=== PATIENT | male | born 1940 | race Caucasian/White ===

== ENCOUNTER 2017-02-10 08:37 | Emergency (ER) | payer MEDICARE, OTHER ==
[2017-02-10] MEDS ORDERED: HYDROcod/ACETAM 5/325 MG TABLET PO STA (09:31)
[2017-02-10] MEDS ORDERED: TRIAMCINOLONE 40 MG/ML VIAL IM STA (09:31)
[2017-02-10] MEDS ORDERED: TRIAMCINOLONE 40 MG/ML VIAL ONE (09:33)
[2017-02-10] MEDS ORDERED: HYDROcod/ACETAM 5/325 MG TABLET ONE (09:33)
--- NOTE | 2017-02-10 10:16 | ED Physician Documentation ---
PD HPI NECK PAIN - Stated complaint Stated Complaint: HEAD PX - Chief complaint Chief Complaint: Neuro - History obtained from History obtained from: Patient - History of Present Illness Timing - onset: How many days ago (few) Timing - duration: Days (few) Timing - details: Gradual onset, Still present, Waxing and waning Location: Upper, Right Quality: Pain, Aching Associated symptoms: No: Fever, Weakness, Numbness Improves with: Rest Worsened by: Movement, Palpation Contributing factors: No: Lifting, Twisting, Trauma Similar symptoms before: Has not had sx before Recently seen: Not recently seen Review of Systems Constitutional: denies: Fever, Chills Eyes: denies: Loss of vision, Decreased vision, Photophobia Nose: denies: Rhinorrhea / runny nose, Congestion Throat: denies: Sore throat Respiratory: denies: Cough Skin: denies: Rash, Lesions Musculoskeletal: reports: Neck pain. denies: Back pain Neurologic: denies: Focal weakness, Numbness, Near syncope, Confused, Altered mental status, Headache PD PAST MEDICAL HISTORY - Past Medical History Past Medical History: Yes Cardiovascular: Hypertension : Benign prostate hypertrophy - Past Surgical History Past Surgical History: No - Present Medications Home Medications: Ambulatory Orders Medication Instructions Recorded Confirmed Hydrocodone/Acetaminophen [[place] 1 each PO Q6H PRN #20 tablet 02/10/17 5-325 Tablet] Lisinopril 10 mg ORAL DAILY 02/10/17 02/10/17 Methocarbamol [Robaxin] 500 mg PO Q6H PRN #25 tablet 02/10/17 Naproxen [Naprosyn] 500 mg PO BID #15 tablet 02/10/17 - Allergies Allergies/Adverse Reactions: Allergies Allergy/AdvReac Type Severity Reaction Status Date / Time No Known Drug Allergies Allergy Verified 02/10/17 08:44 - Social History Does the pt smoke?: No Smoking Status: Never smoker Does the pt drink ETOH?: No Does the pt have substance abuse?: No - Immunizations Immunizations are current?: Yes PD ED PE NORMAL - Vitals Vital signs reviewed: Yes - General General: Alert and oriented X 3, No acute distress, Well developed/nourished, Other (some guarded movement of neck due to pain right upper neck. ) - HEENT HEENT: PERRL, EOMI - Neck Neck: Supple, no meningeal sign, No adenopathy, Other (tender right upper trapezius insetion area. No rash nor sores. 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 some arthritic. ) PD MEDICAL DECISION MAKING - ED course Complexity details: re-evaluated patient (trigger point injection at tender muscle upper right trapezius insertion without problems using Kenalog and Marcaine. ), considered differential (neck pain with tender spot at trapezius insertion and no neuro symptoms. Xray with some arthritic changes, no significant. ), d/w patient Departure - Departure Disposition: 01 Home, Self Care Clinical Impression: Musculoskeletal neck pain Condition: Stable Record reviewed to determine appropriate education?: Yes Instructions: ED Neck Pain No Trauma Follow-Up: Christi Saunders DO [Primary Care Provider] - Prescriptions: Naproxen [Naprosyn] 500 mg PO BID #15 tablet Hydrocodone/Acetaminophen [[place] 5-325 Tablet] 1 each PO Q6H PRN #20 tablet PRN Reason: Pain Methocarbamol [Robaxin] 500 mg PO Q6H PRN #25 tablet PRN Reason: Spasms Comments: Heat and gentle stretching for neck area to help with muscles. Naproxen twice daily for 5-10 days until better. Robaxin muscle relaxant for stiffness as needed. Add hydrocodone for pain as needed. Recheck if not better over the next week. Discharge Date/Time: 02/10/17 10:55
[2017-02-10 10:43] VITALS: BP 133/78
--- NOTE | 2017-02-10 11:27 | XRAY Preliminary Report ---
Exam: XR Cervical Spine 2 View IMPRESSION: 1. Negative for fracture or spondylolisthesis. 2. Multilevel moderate to severe degenerative disk disease in the C3 through the T1, worse in the C5- C6. [facility] SITE ID: [id number]
--- NOTE | 2017-02-10 11:30 | XRAY Report ---
EXAM: CERVICAL SPINE RADIOGRAPHY EXAM DATE: 02/10/2017 09:46 AM. CLINICAL HISTORY: Right neck pain for a week. COMPARISONS: None. TECHNIQUE: 3 views. FINDINGS: Alignment: No discrete spondylolisthesis or scoliosis. Bones: The cervical vertebral bodies and posterior elements are well visualized from the skull base t hrough C7-T1. No fractures or bone lesions. Disks: There is near complete spontaneous fusion of the disk in the C2-C3 . Multilevel moderate to se elle degenerative disk disease in the C3 through the T1, worse in the C5-C6. Facets: No degenerative disease. Soft Tissues: No prevertebral soft tissue swelling. The visualized lung apices are clear. IMPRESSION: 1. Negative for fracture or spondylolisthesis. 2. Multilevel moderate to severe degenerative disk disease in the C3 through the T1, worse in the C5- C6. [facility] Referring Provider Line: [phone] SITE ID: [id number]
== END 2017-02-10 10:55 | disposition home or self-care (01) ==
LOC: ED 08:37
DX: M54.2 Cervicalgia (principal); M50.33 Other cervical disc degeneration, cervicothoracic region; I10 Essential (primary) hypertension; N40.0 Benign prostatic hyperplasia without lower urinary tract symptoms
CPT/HCPCS: 20552; 72040; 99283; 99284

== ENCOUNTER 2018-09-28 18:05 | Emergency (ER) | payer MEDICARE, OTHER ==
[2018-09-28 18:12] VITALS: BP 149/85
--- NOTE | 2018-09-28 18:20 | ED Physician Documentation ---
History of Present Illness - Stated complaint Stated Complaint: COLD SWEAT/SHAKING - Chief complaint Chief Complaint: General - History obtained from History obtained from: Patient - History of Present Illness Timing: Today (He traveled down to [place] to see family and came back today. He is a little tired after traveling and laid down for a nap. He got up a little less than an hour ago because he was shaking and cold and sweaty. It still going on to some extent but less so. There is no associated chest pain, cough, urinary complaints, shortness of breath, pedal edema, sore throat.) Review of Systems Constitutional: reports: Chills, Fatigue, Sweats. denies: Fever Ears: denies: Ear pain Nose: denies: Rhinorrhea / runny nose, Congestion Throat: denies: Sore throat Cardiac: denies: Chest pain / pressure, Palpitations Respiratory: denies: Dyspnea, Cough GI: denies: Abdominal Pain, Nausea, Constipation, Diarrhea PD PAST MEDICAL HISTORY - Past Medical History Cardiovascular: Hypertension : Benign prostate hypertrophy - Past Surgical History Past Surgical History: No - Present Medications Home Medications: Ambulatory Orders Medication Instructions Recorded Confirmed Lisinopril 20 mg ORAL DAILY 02/10/17 02/10/17 Amitriptyline [Elavil] 10 mg PO QPM 09/28/18 09/28/18 Tamsulosin HCl [Flomax] 0.4 mg PO QPM 09/28/18 09/28/18 - Allergies Allergies/Adverse Reactions: Allergies Allergy/AdvReac Type Severity Reaction Status Date / Time No Known Drug Allergies Allergy Verified 09/28/18 18:11 - Social History Does the pt smoke?: No Smoking Status: Never smoker Does the pt drink ETOH?: No Does the pt have substance abuse?: No - Immunizations Immunizations are current?: Yes PD ED PE NORMAL - Vitals Vital signs reviewed: Yes - General General: Alert and oriented X 3, No acute distress - HEENT HEENT: PERRL, EOMI - Neck Neck: Supple, no meningeal sign, No bony TTP - Cardiac Cardiac: RRR, No murmur - Respiratory Respiratory: No respiratory distress, Clear bilaterally - Abdomen Abdomen: Soft, Non tender - Derm Derm: Normal color, Warm and dry - Extremities Extremities: No edema, No calf tenderness / cord - Neuro Neuro: Alert and oriented X 3, Normal speech Results - Vitals Vitals: Vital Signs - 24 hr 09/28/18 18:08 Temperature 36.2 C L Heart Rate 86 Respiratory 18 Rate Blood Pressure 149/85 H O2 Saturation 96 Oxygen O2 Source Room air - EKG (time done) 1839 Rate: Rate (enter#) (76) Rhythm: NSR [place]: Normal Intervals: Normal NM QRS: Normal Ischemia: Non specific changes Computer interpretation: Agree with computer - Labs Labs: Laboratory Tests 09/28/18 09/28/18 09/28/18 18:25 18:45 18:45 WBC 6.5 RBC 4.43 L Hgb 13.7 L Hct 40.8 L MCV 92.0 MCH 31.0 MCHC 33.7 RDW 13.4 Plt Count 170 MPV 8.6 Neut # (Auto) 4.1 Lymph # (Auto) 1.3 L [place] # (Auto) 0.8 Eos # (Auto) 0.2 Baso # (Auto) 0.1 Absolute Nucleated RBC 0.00 Nucleated RBC % 0.0 Sodium 137 Potassium 4.2 Chloride 103 Carbon Dioxide 28 Anion Gap 6.0 BUN 26 H Creatinine 0.9 Estimated GFR (MDRD) 82 L Glucose 114 H Calcium 8.8 Total Bilirubin 0.6 AST 21 ALT 17 Alkaline Phosphatase 81 Troponin I Total Protein 6.8 Albumin 3.6 Globulin 3.2 Albumin/Globulin Ratio 1.1 Lipase 38 Urine Color YELLOW Urine Clarity CLEAR Urine pH 5.5 Ur Specific [place] 1.025 Urine Protein NEGATIVE Urine Glucose (UA) NEGATIVE Urine Ketones NEGATIVE Urine Occult Blood NEGATIVE Urine Nitrite NEGATIVE Urine Bilirubin NEGATIVE Urine Urobilinogen 1 (NORMAL) Ur Leukocyte Esterase NEGATIVE Ur Microscopic Review NOT INDICATED Urine Culture Comments NOT INDICATED 09/28/18 18:45 WBC RBC Hgb Hct MCV MCH MCHC RDW Plt Count MPV Neut # (Auto) Lymph # (Auto) [place] # (Auto) Eos # (Auto) Baso # (Auto) Absolute Nucleated RBC Nucleated RBC % Sodium Potassium Chloride Carbon Dioxide Anion Gap BUN Creatinine Estimated GFR (MDRD) Glucose Calcium Total Bilirubin AST ALT Alkaline Phosphatase Troponin I < 0.04 Total Protein Albumin Globulin Albumin/Globulin Ratio Lipase Urine Color Urine Clarity Urine pH Ur Specific [place] Urine Protein Urine Glucose (UA) Urine Ketones Urine Occult Blood Urine Nitrite Urine Bilirubin Urine Urobilinogen Ur Leukocyte Esterase Ur Microscopic Review Urine Culture Comments PD MEDICAL DECISION MAKING - ED course ED course: 78-year-old gentleman presents with odd and nonspecific symptoms of shakes and cold sweats. Resolved during his time here and given advanced age he was evaluated extensively without pertinent abnormal findings. Departure - Departure Disposition: 01 Home, Self Care Clinical Impression: Shakes, Chills without fever Hypertension Qualifiers: Hypertension type: essential hypertension Qualified Code(s): I10 - Essential (primary) hypertension Condition: Good Record reviewed to determine appropriate education?: Yes Comments: If you develop new or recurrent symptoms please return for reevaluation. Follow-up with your physician later this week for recheck.
[2018-09-28 18:35] LABS: BILIRUBIN,URINE NEGATIVE (NEGATIVE); GLUCOSE, URINE (UA) NEGATIVE (NEGATIVE); KETONES,URINE (UA) NEGATIVE (NEGATIVE); LEUKOCYTE ESTERASE, URINE NEGATIVE (NEGATIVE); NITRITE,URINE NEGATIVE (NEGATIVE); OCCULT BLOOD,URINE NEGATIVE (NEGATIVE); PH,URINE 5.5 PH (5.0-7.5); PROTEIN,URINE NEGATIVE (NEGATIVE); UROBILINOGEN,URINE 1 (NORMAL) E.U./dL (NORMAL)
[2018-09-28 18:36] LABS: CLARITY,URINE CLEAR (CLEAR)
[2018-09-28 18:54] LABS: BASOPHILS # (AUTO) 0.1 10^3/uL (0.0-0.1); BASOPHILS % (AUTO) 0.9 %; EOSINOPHILS # (AUTO) 0.2 10^3/uL (0.0-0.7); EOSINOPHILS % (AUTO) 2.4 %; HGB - HEMOGLOBIN 13.7 g/dL (14.0-18.0); LYMPHOCYTES # (AUTO) 1.3 10^3/uL (1.5-3.5); LYMPHOCYTES % (AUTO) 20.2 %; MEAN CORPUSCULAR HGB CONC 33.7 g/dL (32.0-36.0); MEAN PLATELET VOLUME 8.6 fL (7.4-11.4); MONOCYTES # (AUTO) 0.8 10^3/uL (0.0-1.0); NEUTROPHILS # (AUTO) 4.1 10^3/uL (1.5-6.6); NEUTROPHILS % (AUTO) 63.5 %; PLT - PLATELET COUNT 170 10^3/uL (130-450); RED BLOOD COUNT 4.43 10^6/uL (4.70-6.10); RED CELL DISTRIBUTION WIDTH 13.4 % (12.0-15.0); WHITE BLOOD COUNT 6.5 x10^3/uL (4.8-10.8)
[2018-09-28 19:06] LABS: ALBUMIN 3.6 g/dL (3.2-5.5); ALBUMIN/GLOBULIN RATIO 1.1 (1.0-2.2); BILIRUBIN,TOTAL 0.6 mg/dL (0.2-1.0); CALCIUM 8.8 mg/dL (8.5-10.3); CREATININE 0.9 mg/dL (0.6-1.2); TOTAL PROTEIN 6.8 g/dL (6.7-8.2)
--- NOTE | 2018-09-28 19:36 | XRAY Report ---
Reason: rigors Procedure Date: 09/28/2018 Accession Number: [id number] / [id number] Procedure: XR - Chest 2 View X-Ray CPT Code: 39084 FULL RESULT: EXAM: CHEST RADIOGRAPHY. EXAM DATE: 09/28/2018 06:31 PM. CLINICAL HISTORY: Rigors. COMPARISON: 10/01/2008 8:19 AM. TECHNIQUE: 2 views. FINDINGS: Lungs/Pleura: No focal opacities evident. No pleural effusion. No pneumothorax. Normal volumes. Mediastinum: Heart and mediastinal contours are unremarkable. Other: None. IMPRESSION: No active disease. [facility]
== END 2018-09-28 19:58 | disposition home or self-care (01) ==
LOC: ED 18:05
DX: R68.83 Chills (without fever) (principal); R61 Generalized hyperhidrosis; R53.83 Other fatigue; I10 Essential (primary) hypertension
CPT/HCPCS: 36415; 71046; 80053; 81001; 81003; 83690; 84484; 85025; 87086; 93005; 99283

== ENCOUNTER 2019-11-30 01:29 | Observation (INO) | payer MEDICARE, OTHER ==
--- NOTE | 2019-11-30 01:36 | ED Physician Documentation ---
History of Present Illness - Stated complaint Stated Complaint: RECTAL BLEED - History obtained from History obtained from: Patient, Family (The patient is a 79-year-old male who presents with spontaneous lower GI bleeding. The patient's reports he woke tonight from sleep to have a bowel movement he had a large bloody bowel movement and then he continued to bleed out of his rectum he denies taking anticoagulants he denies any history of previous similar episodes.The patient denies alcohol use.He denies any pain currently.) Review of Systems Constitutional: reports: Reviewed and negative Eyes: reports: Reviewed and negative Ears: reports: Reviewed and negative Nose: reports: Reviewed and negative Throat: reports: Reviewed and negative Cardiac: reports: Reviewed and negative Respiratory: reports: Reviewed and negative GI: reports: Bloody / black stool : reports: Reviewed and negative Skin: reports: Reviewed and negative Musculoskeletal: reports: Reviewed and negative Neurologic: reports: Reviewed and negative Psychiatric: reports: Reviewed and negative Endocrine: reports: Reviewed and negative Immunocompromised: reports: Reviewed and negative PD PAST MEDICAL HISTORY - Past Medical History Cardiovascular: Hypertension Respiratory: None Neuro: Headaches Endocrine/Autoimmune: None GI: None : Benign prostate hypertrophy HEENT: None Psych: None Musculoskeletal: None Derm: None - Past Surgical History Past Surgical History: No - Present Medications Home Medications: Ambulatory Orders Medication Instructions Recorded Confirmed lisinopriL [Lisinopril] 20 mg ORAL DAILY 02/10/17 02/10/17 Tamsulosin HCl [Flomax] 0.4 mg PO QPM 09/28/18 09/28/18 - Allergies Allergies/Adverse Reactions: Allergies Allergy/AdvReac Type Severity Reaction Status Date / Time No Known Drug Allergies Allergy Verified 09/28/18 18:11 - Social History Does the pt smoke?: No Smoking Status: Never smoker Does the pt drink ETOH?: No Does the pt have substance abuse?: No - Immunizations Immunizations are current?: Yes - POLST Patient has POLST: No PD ED PE NORMAL - Vitals Vital signs reviewed: Yes - General General: Alert and oriented X 3, Other (Pale, diaphoretic, blood all over the patient's pants and on the bed.) - HEENT HEENT: Atraumatic, PERRL, Moist mucous membranes, Pharynx benign - Neck Neck: Supple, no meningeal sign, No JVD, No bruit - Cardiac Cardiac: RRR, Strong equal pulses - Respiratory Respiratory: No respiratory distress, Clear bilaterally - Abdomen Abdomen: Normal bowel sounds, Soft, Non tender, Non distended, No organomegaly - Male Male : Other (Circumcised genitalia no blood at the urethral meatus testicles descended bilaterally no inguinal hernias appreciated) - Rectal Rectal: Other (Gross blood in the rectum and the anus and on the bed sheets. No signs of trauma no lesions no signs of external or internal hemorrhoids. 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, No motor deficit, No sensory deficit, Normal speech - Psych Psych: Normal mood, Normal affect Results - Vitals Vitals: Vital Signs - 24 hr 11/30/19 11/30/19 11/30/19 01:34 01:39 01:45 Temperature 34.6 C L 36.0 C L Heart Rate 55 L Respiratory 18 Rate Blood Pressure 130/70 O2 Saturation 95 11/30/19 11/30/19 11/30/19 01:46 01:57 02:02 Temperature Heart Rate 53 L 55 L 56 L Respiratory 18 13 19 Rate Blood Pressure 107/70 107/70 115/69 O2 Saturation 95 97 11/30/19 11/30/19 11/30/19 02:16 02:42 02:45 Temperature Heart Rate 49 L 52 L 53 L Respiratory 16 15 18 Rate Blood Pressure 112/60 110/63 124/69 O2 Saturation 96 95 94 Oxygen O2 Source Room air - EKG (time done) 01:55 Rate: Rate (enter#) (52), Other (No STEMI) Rhythm: NSR [place]: Normal Intervals: Prolonged SD QRS: Normal Ischemia: Non specific changes Computer interpretation: Agree with computer - Labs Labs: Laboratory Tests 11/30/19 11/30/19 11/30/19 01:40 01:40 01:40 WBC 7.3 RBC 4.02 L Hgb 12.4 L Hct 37.4 L MCV 93.0 MCH 30.8 MCHC 33.2 RDW 12.6 Plt Count 197 MPV 10.9 Neut # (Auto) 2.9 Lymph # (Auto) 3.2 [place] # (Auto) 1.0 Eos # (Auto) 0.2 Baso # (Auto) 0.1 Absolute Nucleated RBC 0.00 Nucleated RBC % 0.0 PT 12.3 INR 1.1 APTT 23.5 L Sodium 139 Potassium 3.6 Chloride 104 Carbon Dioxide 23 Anion Gap 12.0 BUN 29 H Creatinine 1.0 Estimated GFR (MDRD) 72 L Glucose 144 H Lactic Acid Calcium 8.6 Total Bilirubin 0.5 Direct Bilirubin 0.1 AST 22 ALT 13 Alkaline Phosphatase 56 [place]mon[place] Total Creatine Kinase 174 Troponin I High Sens B-Natriuretic Peptide Total Protein 5.9 L Albumin 3.4 Globulin 2.5 Salicylates < 6.0 Acetaminophen < 10 L Ethyl Alcohol < 5.0 Blood Type Blood Type Recheck Antibody Screen Crossmatch IS Only 11/30/19 11/30/19 11/30/19 01:40 01:40 01:40 WBC RBC Hgb Hct MCV MCH MCHC RDW Plt Count MPV Neut # (Auto) Lymph # (Auto) [place] # (Auto) Eos # (Auto) Baso # (Auto) Absolute Nucleated RBC Nucleated RBC % PT INR APTT Sodium Potassium Chloride Carbon Dioxide Anion Gap BUN Creatinine Estimated GFR (MDRD) Glucose Lactic Acid 2.5 H Calcium Total Bilirubin Direct Bilirubin AST ALT Alkaline Phosphatase [place] 14.6 Total Creatine Kinase Troponin I High Sens B-Natriuretic Peptide 41 Total Protein Albumin Globulin Salicylates Acetaminophen Ethyl Alcohol Blood Type Blood Type Recheck Antibody Screen Crossmatch IS Only 11/30/19 11/30/19 11/30/19 01:40 01:40 02:20 WBC RBC Hgb Hct MCV MCH MCHC RDW Plt Count MPV Neut # (Auto) Lymph # (Auto) [place] # (Auto) Eos # (Auto) Baso # (Auto) Absolute Nucleated RBC Nucleated RBC % PT INR APTT Sodium Potassium Chloride Carbon Dioxide Anion Gap BUN Creatinine Estimated GFR (MDRD) Glucose Lactic Acid Calcium Total Bilirubin Direct Bilirubin AST ALT Alkaline Phosphatase Ammonia Total Creatine Kinase Troponin I High Sens 9.6 B-Natriuretic Peptide Total Protein Albumin Globulin Salicylates Acetaminophen Ethyl Alcohol Blood Type O NEGATIVE Blood Type Recheck O NEGATIVE Antibody Screen NEGATIVE Crossmatch IS Only See Detail PD MEDICAL DECISION MAKING - ED course Complexity details: other (unsure of the patient's cause of BRBPR, not on anticoagualants, no trauma, did have abd hernia repair last month but denies abd pain currently, denies AC or ETOH. denies hx of prev sim episodes, discussed case w surgeon who is agreeable to colonoscopy in the am, patient and updated. patient accepted by hospitalist, patient HD stable at this time. ) - Consults Consults: Consulted (name) (dr ferreira, general surgeon, will stay on as consult and scope in the am.), Discussed case with (dr karolyn roberts, hospitalist, will accept.), Request ent consultant evaluate patient, Request ent consultant admit patient - Critical Care Time(min): 30 Time Includes: Direct patient care, Review records, Reassess patient, Document care, Coordinate care, Medical consult, Family consult for tx dec Data interpretation: Labs, Pulse ox Procedures included in critical care time: Peripheral IV, Blood draw Departure - Departure Disposition: ED Place in Observation Clinical Impression: Lower GI bleed Condition: Fair Discharge Date/Time: 11/30/19 03:30
[2019-11-30] MEDS ORDERED: SODIUM CHLORIDE 0.9% 1,000 ML IV ONE ×2 (01:42)
[2019-11-30 01:50] LABS: BASOPHILS # (AUTO) 0.1 10^3/uL (0.0-0.1); EOSINOPHILS # (AUTO) 0.2 10^3/uL (0.0-0.7); EOSINOPHILS % (AUTO) 2.7 %; HGB - HEMOGLOBIN 12.4 g/dL (14.0-18.0); LYMPHOCYTES # (AUTO) 3.2 10^3/uL (1.5-3.5); LYMPHOCYTES % (AUTO) 43.1 %; MEAN CORPUSCULAR HEMOGLOBIN 30.8 pg (27.0-31.0); MEAN CORPUSCULAR HGB CONC 33.2 g/dL (32.0-36.0); MEAN PLATELET VOLUME 10.9 fL (7.4-11.4); MONOCYTES % (AUTO) 13.8 %; NEUTROPHILS # (AUTO) 2.9 10^3/uL (1.5-6.6); NEUTROPHILS % (AUTO) 38.9 %; PLT - PLATELET COUNT 197 10^3/uL (130-450); RED BLOOD COUNT 4.02 10^6/uL (4.70-6.10); RED CELL DISTRIBUTION WIDTH 12.6 % (12.0-15.0); WHITE BLOOD COUNT 7.3 x10^3/uL (4.8-10.8)
[2019-11-30 02:07] LABS: INR 1.1 (0.8-1.2); PT - PROTHROMBIN TIME 12.3 secs (9.9-12.6)
[2019-11-30 02:08] LABS: ACETAMINOPHEN < 10 ug/mL (10-30); ALBUMIN 3.4 g/dL (3.2-5.5); ALKALINE PHOSPHATASE 56 IU/L (42-121); ALT ALANINE AMINOTRANSFERASE 13 IU/L (10-60); AST ASPARTATE AMINOTRANSFERASE 22 IU/L (10-42); BILIRUBIN,DIRECT 0.1 mg/dL (0.1-0.5); BILIRUBIN,TOTAL 0.5 mg/dL (0.2-1.0); BUN - BLOOD UREA NITROGEN 29 mg/dL (6-20); CALCIUM 8.6 mg/dL (8.5-10.3); CARBON DIOXIDE - CO2 23 mmol/L (21-32); CHLORIDE 104 mmol/L (101-111); CK- CREATINE KINASE 174 IU/L (22-269); GFR - MDRD 72 (>89); GLUCOSE 144 mg/dL (70-100); SALICYLATE < 6.0 mg/dL; SODIUM 139 mmol/L (135-145); TOTAL PROTEIN 5.9 g/dL (6.7-8.2)
[2019-11-30 02:14] LABS: PARTIAL THROMBOPLASTIN TIME 23.5 secs (24.9-33.3)
--- NOTE | 2019-11-30 02:28 | XRAY Report ---
Reason: gi bleed Procedure Date: 11/30/2019 Accession Number: [id number] / [id number] Procedure: XR - Chest 1 View X-Ray CPT Code: 33009 Final Report FULL RESULT: EXAM: CHEST RADIOGRAPHY EXAM DATE: 11/30/2019 01:51 AM. CLINICAL HISTORY: GI bleeding. Weakness. COMPARISON: CHEST 2 VIEW 09/28/2018 6:22 PM. TECHNIQUE: 1 view. FINDINGS: Lungs/Pleura: No alveolar consolidation or pleural effusion seen. No pneumothorax. Mediastinum: Within exam limitations, the cardiomediastinal contour is normal. Aortic atherosclerosis. Other: None. IMPRESSION: 1. No acute abnormality seen in the chest. [facility]
--- NOTE | 2019-11-30 02:32 | XRAY Report ---
Reason: gi bleed Procedure Date: 11/30/2019 Accession Number: [id number] / [id number] Procedure: XR - Abdomen 1 View X-Ray CPT Code: 35298 Final Report FULL RESULT: EXAM: ABDOMEN RADIOGRAPHY EXAM DATE: 11/30/2019 01:55 AM. CLINICAL HISTORY: GI bleeding. Weakness. COMPARISON: None. TECHNIQUE: 1 view. FINDINGS: Bowel Gas Pattern: Within normal limits. No dilated loops. Other: None. IMPRESSION: 1. No acute abnormality seen. [facility]
[2019-11-30] MEDS ORDERED: SODIUM CHLORIDE FLUSH 0.9% 10 ML SYRINGE IVP PRN (02:51)
--- NOTE | 2019-11-30 03:04 | HISTORY & PHYSICAL EXAMINATION ---
Chief Complaint - Chief Complaint Chief Complaint: bright red blood per rectum History of Present Illness - Admitted From Admitted From:: [facility] - History Obtained From Records Reviewed: yes History obtained from: patient and - History of Present Illness HPI Comment/Other: Patient is a 79 y/o male who presented to the ED with bright red blood per rectum. This happened around 1 am. He felt like having a bowel movement and when he did it was completely blood. This happened twice at home. He denied abdominal pain prior or currently. He denied nausea or vomiting. He denies any previous occurrence of a bleed. In the ED he had another episode which can be described as currant jelly-like. His reports that he had a colonoscopy at [facility] 2 years ago which was unremarkable. His SBP is currently 110. His hemoglobin in the ED was 12. He appears to be resting comfortably He denied chest pain or dyspnea. History - Past Medical History Cardiovascular: reports: Hypertension Respiratory: reports: None Neuro: reports: Headaches Endocrine/Autoimmune: reports: None GI: reports: None : reports: Benign prostate hypertrophy HEENT: reports: None Psych: reports: None Musculoskeletal: reports: None Derm: reports: None MRSA Hx?: No - Past Surgical History General: reports: Colonoscopy, Other (inguinal hernia) - Family & Social History Family History: Mother: Cancer (lung cancer), Father: Cancer, Brother: Cancer Living arrangement: At home Living Situation: With spouse/s.o. Social History Notes: He denies tobacco or illicit drug use. He drinks alcohol occasionally - POLST Patient has POLST: No POLST Status: Full Code Meds/Allgy - Home Medications Home Medications: Ambulatory Orders Medication Instructions Recorded Confirmed lisinopriL [Lisinopril] 20 mg ORAL DAILY 02/10/17 02/10/17 Tamsulosin HCl [Flomax] 0.4 mg PO QPM 09/28/18 09/28/18 - Allergies Allergies/Adverse Reactions: Allergies Allergy/AdvReac Type Severity Reaction Status Date / Time No Known Drug Allergies Allergy Verified 09/28/18 18:11 Review of Systems - Constitutional Constitutional: denies: Fatigue, Fever, Chills, Malaise - Eyes Eyes: denies: Pain, Vision loss - Ears, Nose & Throat Ears, Nose & Throat: denies: Ear pain, Vertigo - Cardiovascular Cariovascular: denies: Irregular heart rate, Palpitations, Chest pain, Edema, Lightheadedness - Respiratory Respiratory: denies: Cough, Sputum production, Wheezing, Snoring, SOB at rest, SOB with exertion - Gastrointestinal Gastrointestinal: reports: Bloody stools. denies: Constipation, Nausea, Vomiting, Arnol blood emesis, Coffee grounds emesis, Reflux/heartburn, Bloating - Genitourinary Genitourinary: denies: Dysuria, Frequency, Urgency, Hematuria - Musculoskeletal Musculoskeletal: denies: Muscle pain, Back pain, Muscle aches, Stiffness - Integumentary Integumentary: denies: Rash, Pruritis, Lesions, Dryness - Neurological Neurological: denies: General weakness, Focal weakness, Headache, Dizziness - Psychiatric Psychiatric: denies: Depression, Anxiety - Endocrine Endocrine: denies: Polyuria, Polydypsia - Hematologic/Lymphatic Hematologic/Lymphatic: denies: Anemia, Bruising, Petechiae Prior Level of Functionality: He is independent of activities of daily living Exam - Vital Signs Vital Signs: Vital Signs x48h Temp Pulse Resp BP Pulse Ox 11/30/19 02:45 53 L 18 124/69 94 11/30/19 02:42 52 L 15 110/63 95 11/30/19 02:16 49 L 16 112/60 96 11/30/19 02:02 56 L 19 115/69 97 11/30/19 01:57 55 L 13 107/70 95 11/30/19 01:46 53 L 18 107/70 11/30/19 01:45 36.0 C L 11/30/19 01:39 34.6 C L 11/30/19 01:34 55 L 18 130/70 95 - Physical Exam General Appearance: positive: No acute distress Eyes Bilateral: positive: Normal inspection, PERRL, EOMI ENT: positive: ENT inspection nml, Pharynx nml, No signs of dehydration Neck: positive: No JVD, Trachea midline Respiratory: positive: Chest non-tender, No respiratory distress, Breath sounds nml. negative: Wheezes, Rales, Rhonchi Cardiovascular: positive: No murmur, Bradycardia Abdomen: positive: Non-tender, No organomegaly, Nml bowel sounds, No distention. negative: Guarding, Rebound Back: positive: Nml inspection Skin: positive: Color nml, No rash, Warm, Dry Extremities: positive: Non-tender, Full ROM, Nml appearance, No pedal edema Neurologic/Psychiatric: positive: Oriented x3, CN's nml (2-12), Motor nml, Sensation nml, Mood/affect nml Conclusion/Plan - Problem List (1) GI bleed Conclusion/Plan: Likely lower GI Bleed Patient made NPO. IV hydration with normal saline H&H Q8H. General Surgery was consulted by ED and would see patient later in the morning CT abd/pelvis pending (2) Hypertension Conclusion/Plan: In light of GI bleed, hold lisinopril for now Patient rather receiving active hydration (3) BPH (benign prostatic hyperplasia) Conclusion/Plan: Will resume flomax when appropriate to do so. Will hold for now - Lab Results Fish Bones: 11/30/19 01:40 11/30/19 01:40 Core Measures - Anticipated LOS I expect patient to be DC'd or transferred within 96 hours.: Yes - DVT/VTE - Prophylaxis VTE/DVT Device ordered at admit?: Yes VTE/DVT Prophylaxis med ordered at admit?: Yes
[2019-11-30] MEDS: SODIUM CHLORIDE 0.9% 1,000 ML IV SCH ×4 (04:57→21:44)
[2019-11-30 06:26] LABS: HGB - HEMOGLOBIN 10.1 g/dL (14.0-18.0); MEAN CORPUSCULAR HEMOGLOBIN 31.4 pg (27.0-31.0); MEAN CORPUSCULAR HGB CONC 33.7 g/dL (32.0-36.0); MEAN CORPUSCULAR VOLUME 93.2 fL (80.0-94.0); MEAN PLATELET VOLUME 10.8 fL (7.4-11.4); RED BLOOD COUNT 3.22 10^6/uL (4.70-6.10); RED CELL DISTRIBUTION WIDTH 12.6 % (12.0-15.0); WHITE BLOOD COUNT 9.1 x10^3/uL (4.8-10.8)
[2019-11-30] MEDS: PANTOPRAZOLE 40 MG VIAL IVP SCH (06:29)
[2019-11-30 06:34] LABS: CALCIUM 7.7 mg/dL (8.5-10.3); CREATININE 0.7 mg/dL (0.6-1.2)
--- NOTE | 2019-11-30 06:55 | PHARMACY PROGRESS NOTE ---
- Best Possible Medication History Admit Date and Time: 11/30/19 0251 Processed by: Pharmacy Medication History completed: Yes Patient Interview: Completed Secondary Source(s): Pharmacy records As the person ultimately responsible for medication therapy, providers are able to order a medication from an existing home medication list in [facility] via the "Reconcile Routine" prior to Confirmation of that medication by fire support man. Such practice is discouraged except when the physician, in their clinical judgment, deems that a medical need exists for a medication without regard to previous use.
[2019-11-30 08:20] LABS: MUDS CUTOFF CONCENTRATIONS CUTOFF CONC BELOW:
[2019-11-30 08:24] LABS: BILIRUBIN,URINE NEGATIVE (NEGATIVE); GLUCOSE, URINE (UA) NEGATIVE (NEGATIVE); KETONES,URINE (UA) NEGATIVE (NEGATIVE); LEUKOCYTE ESTERASE, URINE NEGATIVE (NEGATIVE); NITRITE,URINE NEGATIVE (NEGATIVE); OCCULT BLOOD,URINE NEGATIVE (NEGATIVE); PROTEIN,URINE NEGATIVE (NEGATIVE); UROBILINOGEN,URINE 0.2 (NORMAL) E.U./dL (NORMAL)
[2019-11-30 08:28] LABS: CLARITY,URINE CLEAR (CLEAR)
[2019-11-30 08:35] LABS: AMPHETAMINE SCREEN,URINE NEGATIVE (NEGATIVE); BENZODIAZEPINES SCREEN, URINE NEGATIVE (NEGATIVE); COCAINE SCREEN URINE NEGATIVE (NEGATIVE); METHADONE SCREEN, URINE NEGATIVE (NEGATIVE); METHAMPHETAMINES SCREEN, URINE NEGATIVE (NEGATIVE); OPIATE SCREEN, URINE NEGATIVE (NEGATIVE); OXYCODONE SCREEN, URINE NEGATIVE (NEGATIVE); PROPOXYPHENE SCREEN, URINE NEGATIVE (NEGATIVE); TRICYCLIC ANTIDEPRESSANT,URINE NEGATIVE (NEGATIVE)
[2019-11-30] MEDS: SODIUM CHLORIDE FLUSH 0.9% 10 ML SYRINGE IVP SCH ×3 (09:16→23:49)
--- NOTE | 2019-11-30 13:49 | ANESTHESIA ---
Pre-Anesthesia VS, & Labs - Diagnosis GI bleed - Procedure EGD Vital Signs: Temp Pulse Resp BP Pulse Ox 36.3 C L 63 18 118/54 L 94 11/30/19 07:35 11/30/19 07:35 11/30/19 07:35 11/30/19 07:35 11/30/19 07:35 Height 5 ft 9 in Weight (kg) 72 kg Body Mass Index 23.4 - NPO >8 hours - Lab Results Current Lab Results: Laboratory Tests 11/30/19 08:00: Urine Opiates Screen NEGATIVE, Ur Oxycodone Screen NEGATIVE, Urine Methadone Screen NEGATIVE, Ur Propoxyphene Screen NEGATIVE, Ur Barbiturates Screen NEGATIVE, Ur Tricyclics Screen NEGATIVE, Ur Phencyclidine Scrn NEGATIVE, Ur Amphetamine Screen NEGATIVE, U Methamphetamines Scrn NEGATIVE, U Benzodiazepines Scrn NEGATIVE, Urine Cocaine Screen NEGATIVE, U Cannabinoids Screen NEGATIVE 11/30/19 06:21: WBC 9.1, RBC 3.22 L, Hgb 10.1 L, Hct 30.0 L, MCV 93.2, MCH 31.4 H, MCHC 33.7, RDW 12.6, Plt Count 140, MPV 10.8 11/30/19 06:21: Sodium 141, Potassium 3.8, Chloride 111, Carbon Dioxide 21, Anion Gap 9.0, BUN 27 H, Creatinine 0.7, Estimated GFR (MDRD) 109, Glucose 111 H , Calcium 7.7 L 11/30/19 02:20: Blood Type Recheck O NEGATIVE 11/30/19 01:40: Blood Type O NEGATIVE, Antibody Screen NEGATIVE, Crossmatch IS Only See Detail 11/30/19 01:40: Troponin I High Sens 9.6 11/30/19 01:40: Ammonia 14.6 11/30/19 01:40: Lactic Acid 2.5 H 11/30/19 01:40: B-Natriuretic Peptide 41 11/30/19 01:40: Sodium 139, Potassium 3.6, Chloride 104, Carbon Dioxide 23, Anion Gap 12.0, BUN 29 H, Creatinine 1.0, Estimated GFR (MDRD) 72 L, Glucose 144 H, Calcium 8.6, Total Bilirubin 0.5, Direct Bilirubin 0.1, AST 22, ALT 13, Alkaline Phosphatase 56, Total Creatine Kinase 174, Total Protein 5.9 L, Albumin 3.4, Globulin 2.5, Salicylates < 6.0, Acetaminophen < 10 L, Ethyl Alcohol < 5.0 11/30/19 01:40: PT 12.3, INR 1.1, APTT 23.5 L 11/30/19 01:40: WBC 7.3, RBC 4.02 L, Hgb 12.4 L, Hct 37.4 L, MCV 93.0, MCH 30.8, MCHC 33.2, RDW 12.6, Plt Count 197, MPV 10.9, Neut # (Auto) 2.9, Lymph # (Auto) 3.2, [place] # (Auto) 1.0, Eos # (Auto) 0.2, Baso # (Auto) 0.1, Absolute Nucleated RBC 0.00, Nucleated RBC % 0.0 Fish Bones: 11/30/19 06:21 11/30/19 06:21 Home Medications and Allergies Home Medications: Ambulatory Orders lisinopriL [Lisinopril] 20 mg PO DAILY 11/30/19 Active Medications Sodium Chloride (Normal Saline 0.9%) 1,000 mls @ 125 mls/hr IV .Q8H [facility] Last Admin: 11/30/19 10:36 Dose: 125 mls/hr Pantoprazole Sodium (Protonix) 40 mg IVP QDAC [facility] Last Admin: 11/30/19 06:29 Dose: 40 mg Sodium Chloride (Normal Saline Flush 0.9%) 10 ml IVP PRN PRN PRN Reason: NEEDED PER PROVIDER ORDERS Sodium Chloride (Normal Saline Flush 0.9%) 10 ml IVP 0100,0900,1700 [facility] Last Admin: 11/30/19 09:16 Dose: 10 ml Tamsulosin HCl [Flomax] 0.4 mg PO BID 09/28/18 lisinopriL [Lisinopril] 20 mg PO DAILY 11/30/19 Allergies/Adverse Reactions: Allergies Allergy/AdvReac Type Severity Reaction Status Date / Time No Known Drug Allergies Allergy Verified 09/28/18 18:11 Anes History & Medical History - Anesthetic History Anesthesia Complications: reports: No previous complications - Medical History Cardiovascular: reports: Hypertension Pulmonary: reports: None Gastrointestinal: reports: None Urinary: reports: Benign prostate hypertrophy Neuro: reports: Headaches Musculoskeletal: reports: None Endocrine/Autoimmune: reports: None Blood Disorders: reports: None Skin: reports: None Smoking Status: Never smoker Psychosocial: reports: No issues indicated - Surgical History General: Colonoscopy, Other (inguinal hernia) Exam General: Alert, Oriented x3, Cooperative, No acute distress Dental: WNL Mouth Openin Fingerbreadth Neck Mobility: Normal Mallampati classification: I Thyromental Distance: greater than 6 cm Respiratory: Lungs clear, Normal breath sounds, No respiratory distress, No accessory muscle use Cardiovascular: Regular rate, Normal S1, Normal S2, No murmurs Mental/Cognitive Status: Alert/Oriented X3, Normal for patient Plan Anesthesia Type: MAC Consent for Procedure(s) Verified and Reviewed: Yes Code Status: Attempt Resuscitation ASA classification: 2-Mild systemic disease Is this case an emergency?: No
[2019-11-30 14:32] LABS: HGB - HEMOGLOBIN 10.5 g/dL (14.0-18.0); MEAN CORPUSCULAR HEMOGLOBIN 31.5 pg (27.0-31.0); MEAN CORPUSCULAR HGB CONC 33.9 g/dL (32.0-36.0); MEAN CORPUSCULAR VOLUME 93.1 fL (80.0-94.0); MEAN PLATELET VOLUME 10.8 fL (7.4-11.4); RED BLOOD COUNT 3.33 10^6/uL (4.70-6.10); RED CELL DISTRIBUTION WIDTH 12.8 % (12.0-15.0); WHITE BLOOD COUNT 7.3 x10^3/uL (4.8-10.8)
[2019-11-30] MEDS ORDERED: LACTATED RINGERS 1,000 ML IV ONE (15:02)
[2019-11-30] MEDS ORDERED: LIDO GARGLE 30 ML BOTTLE PO ONE (15:02)
[2019-11-30] MEDS ORDERED: PROPOFOL 200 MG/20 ML VIAL IVP ONE (15:02)
--- NOTE | 2019-11-30 15:02 | CONSULTATION NOTE ---
Referring Provider Name of Referring Provider:: Dr. Glover Consult Date: 11/30/19 Chief Complaint - Chief Complaint Chief Complaint: GI bleed History of Present Illness - Admitted From Admitted From:: ER - History Obtained From Records Reviewed: yes History obtained from: pt, Exam Limitations: none - History of Present Illness HPI Comment/Other: 79 yo male who was awakened from sleep last night with sudden passage of large amount of painless BRBPR. This was repeated x 2, prompting him to come to the ER early this am for evaluation. Two subsequent episodes with dizziness but no syncope. No hx prior similar episodes; notes stool initially was black. He reports remote hx of hematemesis from a duodenal ulcer in the 1960s. He takes ibuprofen 400-600 mg twice daily for headaches. Minimal alcohol. No heartburn, indigestion, dysphagia, abdominal pain or wt loss. Neg Fh GI tumors. He reports a normal colonoscopy at [facility] 2-3 yrs ago. He has remained hemodynamically stable since admission. Surgical consultation was requested. History - Past Medical History Cardiovascular: reports: Hypertension Respiratory: reports: None Neuro: reports: Headaches Endocrine/Autoimmune: reports: None GI: reports: None : reports: Benign prostate hypertrophy HEENT: reports: None Psych: reports: None Musculoskeletal: reports: None Derm: reports: None MRSA Hx?: No - Past Surgical History General: reports: Colonoscopy, Other (umbilical hernia repair 10/2019) - Family & Social History Family History: Mother: Cancer (lung cancer), Father: Cancer, Brother: Cancer Living arrangement: At home Living Situation: With spouse/s.o. Social History Notes: He denies tobacco or illicit drug use. He drinks alcohol occasionally - Substance History Use: Uses substance without health or social issues: Alcohol (less than one drink per day) - POLST Patient has POLST: No POLST Status: Full Code Meds/Allgy - Home Medications Home Medications: Ambulatory Orders Medication Instructions Recorded Confirmed Tamsulosin HCl [Flomax] 0.4 mg PO BID 09/28/18 11/30/19 Ibuprofen 400 - 600 mg PO BID PRN 11/30/19 11/30/19 lisinopriL [Lisinopril] 20 mg PO DAILY 11/30/19 11/30/19 - Allergies Allergies/Adverse Reactions: Allergies Allergy/AdvReac Type Severity Reaction Status Date / Time No Known Drug Allergies Allergy Verified 09/28/18 18:11 Review of Systems - Constitutional Constitutional: denies: Weight loss - Gastrointestinal Gastrointestinal: reports: Rectal bleeding, Black stools, Bloody stools. denies: Abdominal pain, Constipation, Diarrhea, Nausea, Vomiting, Reflux/heartburn - Hematologic/Lymphatic Hematologic/Lymphatic: denies: Bleeding tendencies - All Other Systems All Other Systems: reports: Reviewed and negative (or covered in HPI/PMH) Exam - Vital Signs Reviewed Vital Signs: Yes Vital Signs: Vital Signs x48h Temp Pulse Pulse Resp BP Pulse Ox 11/30/19 07:35 36.3 C L 63 18 118/54 L 94 11/30/19 07:21 36.2 C L 56 L 16 98 - Physical Exam General Appearance: positive: No acute distress, Alert Eyes Bilateral: positive: No scleral icterus ENT: positive: ENT inspection nml, Pharynx nml, No signs of dehydration Neck: positive: No JVD. negative: Lymphadenopathy (R), Lymphadenopathy (L) Respiratory: positive: Chest non-tender, No respiratory distress, Breath sounds nml Cardiovascular: positive: Regular rate & rhythm, No murmur, No gallop Abdomen: positive: Non-tender, No organomegaly, No distention. negative: Guarding, Rebound, Hepatomegaly, Splenomegaly, Mass Skin: positive: Color nml, No rash, Warm, Dry. negative: Cyanosis Extremities: positive: Non-tender, No pedal edema. negative: Calf tenderness Neurologic/Psychiatric: positive: Oriented x3 Conclusion and Plan - Lab Results Laboratory Results 11/30/19 14:20: WBC 7.3, RBC 3.33 L, Hgb 10.5 L, Hct 31.0 L, MCV 93.1, MCH 31.5 H, MCHC 33.9, RDW 12.8, Plt Count 153, MPV 10.8 11/30/19 08:00: Urine Color YELLOW, Urine Clarity CLEAR, Urine pH 6.0, Ur Specific [place] 1.020, Urine Protein NEGATIVE, Urine Glucose (UA) NEGATIVE, Urine Ketones NEGATIVE, Urine Occult Blood NEGATIVE, Urine Nitrite NEGATIVE, Urine Bilirubin NEGATIVE, Urine Urobilinogen 0.2 (NORMAL), Ur Leukocyte Esterase NEGATIVE, Ur Microscopic Review NOT INDICATED, Urine Culture Comments NOT INDICATED, Urine Opiates Screen NEGATIVE, Ur Oxycodone Screen NEGATIVE, Urine Methadone Screen NEGATIVE, Ur Propoxyphene Screen NEGATIVE, Ur Barbiturates Screen NEGATIVE, Ur Tricyclics Screen NEGATIVE, Ur Phencyclidine Scrn NEGATIVE, Ur Amphetamine Screen NEGATIVE, U Methamphetamines Scrn NEGATIVE, U Benzodiazepines Scrn NEGATIVE, Urine Cocaine Screen NEGATIVE, U Cannabinoids Screen NEGATIVE 11/30/19 06:21: WBC 9.1, RBC 3.22 L, Hgb 10.1 L, Hct 30.0 L, MCV 93.2, MCH 31.4 H, MCHC 33.7, RDW 12.6, Plt Count 140, MPV 10.8 11/30/19 06:21: Sodium 141, Potassium 3.8, Chloride 111, Carbon Dioxide 21, Anion Gap 9.0, BUN 27 H, Creatinine 0.7, Estimated GFR (MDRD) 109, Glucose 111 H, Calcium 7.7 L 11/30/19 02:20: Blood Type Recheck O NEGATIVE 11/30/19 01:40: Blood Type O NEGATIVE, Antibody Screen NEGATIVE, Crossmatch IS Only See Detail 11/30/19 01:40: Troponin I High Sens 9.6 11/30/19 01:40: Ammonia 14.6 11/30/19 01:40: Lactic Acid 2.5 H 11/30/19 01:40: B-Natriuretic Peptide 41 11/30/19 01:40: Sodium 139, Potassium 3.6, Chloride 104, Carbon Dioxide 23, Anion Gap 12.0, BUN 29 H, Creatinine 1.0, Estimated GFR (MDRD) 72 L, Glucose 144 H, Calcium 8.6, Total Bilirubin 0.5, Direct Bilirubin 0.1, AST 22, ALT 13, Alkaline Phosphatase 56, Total Creatine Kinase 174, Total Protein 5.9 L, Albumin 3.4, Globulin 2.5, Salicylates < 6.0, Acetaminophen < 10 L, Ethyl Alcohol < 5.0 11/30/19 01:40: PT 12.3, INR 1.1, APTT 23.5 L 11/30/19 01:40: WBC 7.3, RBC 4.02 L, Hgb 12.4 L, Hct 37.4 L, MCV 93.0, MCH 30.8, MCHC 33.2, RDW 12.6, Plt Count 197, MPV 10.9, Neut # (Auto) 2.9, Lymph # (Auto) 3.2, [place] # (Auto) 1.0, Eos # (Auto) 0.2, Baso # (Auto) 0.1, Absolute Nucleated RBC 0.00, Nucleated RBC % 0.0 - Diagnostic Imaging Results Diagnostic Imaging Results: positive: Final report reviewed (CXR and KUB nl) - Diagnosis Diagnosis: GI bleed, major; both upper and lower gi sources should be considered included NSAID gastropathy, PUD, H. pylori, neoplasm, doubt varices; lower gi sources such as angiodysplasia or diverticular disease; doubt neoplams with recent favorable colonscopy. - Plan Plan: EGD today. PAR conf. If neg, will rec colonoscopy tomorrow after bowel prep tonight. Thanks,
[2019-11-30] MEDS ORDERED: LIDO GARGLE 30 ML BOTTLE ONE (15:06)
--- NOTE | 2019-11-30 15:26 | PROCEDURE REPORT ---
Hospitalist Procedure Note - Procedure Note Procedure Note: EGD: nl; rec further evaluation with colonoscopy tomorrow am after bowel prep tonight.
[2019-11-30] MEDS: SODIUM/POTASSIUM/MAG SULFATES 354 ML PREP KIT PO SCH (18:03)
[2019-11-30] MEDS ORDERED: ACETAMINOPHEN 325 MG TABLET PO PRN (20:10)
[2019-11-30] MEDS ORDERED: HYDROmorphone 1 MG/ML CARPUJECT IVP PRN (21:22)
[2019-11-30 22:15] LABS: HGB - HEMOGLOBIN 11.4 g/dL (14.0-18.0); MEAN CORPUSCULAR HEMOGLOBIN 31.6 pg (27.0-31.0); MEAN CORPUSCULAR VOLUME 92.8 fL (80.0-94.0); MEAN PLATELET VOLUME 11.2 fL (7.4-11.4); RED BLOOD COUNT 3.61 10^6/uL (4.70-6.10); RED CELL DISTRIBUTION WIDTH 12.7 % (12.0-15.0); WHITE BLOOD COUNT 11.7 x10^3/uL (4.8-10.8)
[2019-11-30] MEDS ORDERED: ACETAMINOPHEN 1,000 MG/100 ML 100 ML IV PRN (23:48)
[2019-12-01] MEDS: SODIUM/POTASSIUM/MAG SULFATES 354 ML PREP KIT PO SCH (05:04)
[2019-12-01] MEDS: SODIUM CHLORIDE FLUSH 0.9% 10 ML SYRINGE IVP SCH ×2 (05:24→16:30)
[2019-12-01] MEDS: PANTOPRAZOLE 40 MG VIAL IVP SCH (05:24)
[2019-12-01 05:31] LABS: HGB - HEMOGLOBIN 9.8 g/dL (14.0-18.0); MEAN CORPUSCULAR HEMOGLOBIN 30.5 pg (27.0-31.0); MEAN CORPUSCULAR HGB CONC 33.9 g/dL (32.0-36.0); MEAN PLATELET VOLUME 10.7 fL (7.4-11.4); RED BLOOD COUNT 3.21 10^6/uL (4.70-6.10); RED CELL DISTRIBUTION WIDTH 12.7 % (12.0-15.0); WHITE BLOOD COUNT 11.1 x10^3/uL (4.8-10.8)
[2019-12-01 05:37] LABS: CALCIUM 8.2 mg/dL (8.5-10.3); CREATININE 0.8 mg/dL (0.6-1.2)
[2019-12-01] MEDS ORDERED: TAMSULOSIN 0.4 MG CAPSULE PO SCH (11:00)
[2019-12-01] MEDS ORDERED: NS W/20 MEQ KCL 1,000 ML IV SCH ×2 (11:00)
[2019-12-01] MEDS ORDERED: LIDOCAINE 2% URO-JET 5 ML SYRINGE UR PRN (12:36)
[2019-12-01] MEDS ORDERED: HYDROmorphone 1 MG/ML SYRINGE IVP PRN (13:16)
--- NOTE | 2019-12-01 13:18 | ANESTHESIA ---
Pre-Anesthesia VS, & Labs - Diagnosis Diagnosis GI bleed, major; both upper and lower gi sources should be considered included NSAID gastropathy , PUD, H. pylori, neoplasm, doubt varices; lower gi sources such as angiodysplasia or diverticular disease; doubt neoplams with recent favorable colonscopy. - Procedure colonoscopy Vital Signs: Temp Pulse Resp BP Pulse Ox 36.3 C L 77 20 168/73 H 93 12/01/19 12:18 12/01/19 12:18 12/01/19 12:18 12/01/19 12:18 12/01/19 12:18 Height 5 ft 9 in Weight (kg) 72 kg Body Mass Index 23.4 - NPO >8 hours - Lab Results Current Lab Results: Laboratory Tests 12/01/19 05:22: WBC 11.1 H, RBC 3.21 L, Hgb 9.8 L, Hct 28.9 L, MCV 90.0, MCH 30.5, MCHC 33.9, RDW 12.7, Plt Count 150, MPV 10.7 12/01/19 05:22: Sodium 137, Potassium 3.4 L, Chloride 107, Carbon Dioxide 21, Anion Gap 9.0, BUN 25 H, Creatinine 0.8, Estimated GFR (MDRD) 93, Glucose 132 H, Calcium 8.2 L 11/30/19 22:11: WBC 11.7 H, RBC 3.61 L, Hgb 11.4 L, Hct 33.5 L, MCV 92.8, MCH 31.6 H, MCHC 34.0, RDW 12.7, Plt Count 189, MPV 11.2 11/30/19 14:20: WBC 7.3, RBC 3.33 L, Hgb 10.5 L, Hct 31.0 L, MCV 93.1, MCH 31.5 H, MCHC 33.9, RDW 12.8, Plt Count 153, MPV 10.8 11/30/19 08:00: Urine Opiates Screen NEGATIVE, Ur Oxycodone Screen NEGATIVE, Urine Methadone Screen NEGATIVE, Ur Propoxyphene Screen NEGATIVE, Ur Barbiturates Screen NEGATIVE, Ur Tricyclics Screen NEGATIVE, Ur Phencyclidine Scrn NEGATIVE, Ur Amphetamine Screen NEGATIVE, U Methamphetamines Scrn NEGATIVE, U Benzodiazepines Scrn NEGATIVE, Urine Cocaine Screen NEGATIVE, U Cannabinoids Screen NEGATIVE 11/30/19 06:21: WBC 9.1, RBC 3.22 L, Hgb 10.1 L, Hct 30.0 L, MCV 93.2, MCH 31.4 H, MCHC 33.7, RDW 12.6, Plt Count 140, MPV 10.8 11/30/19 06:21: Sodium 141, Potassium 3.8, Chloride 111, Carbon Dioxide 21, Anion Gap 9.0, BUN 27 H, Creatinine 0.7, Estimated GFR (MDRD) 109, Glucose 111 H , Calcium 7.7 L 11/30/19 02:20: Blood Type Recheck O NEGATIVE 11/30/19 01:40: Blood Type O NEGATIVE, Antibody Screen NEGATIVE, Crossmatch IS Only See Detail 11/30/19 01:40: Troponin I High Sens 9.6 11/30/19 01:40: Ammonia 14.6 11/30/19 01:40: Lactic Acid 2.5 H 11/30/19 01:40: B-Natriuretic Peptide 41 11/30/19 01:40: Sodium 139, Potassium 3.6, Chloride 104, Carbon Dioxide 23, Anion Gap 12.0, BUN 29 H, Creatinine 1.0, Estimated GFR (MDRD) 72 L, Glucose 144 H, Calcium 8.6, Total Bilirubin 0.5, Direct Bilirubin 0.1, AST 22, ALT 13, Alkaline Phosphatase 56, Total Creatine Kinase 174, Total Protein 5.9 L, Albumin 3.4, Globulin 2.5, Salicylates < 6.0, Acetaminophen < 10 L, Ethyl Alcohol < 5.0 11/30/19 01:40: PT 12.3, INR 1.1, APTT 23.5 L 11/30/19 01:40: WBC 7.3, RBC 4.02 L, Hgb 12.4 L, Hct 37.4 L, MCV 93.0, MCH 30.8, MCHC 33.2, RDW 12.6, Plt Count 197, MPV 10.9, Neut # (Auto) 2.9, Lymph # (Auto) 3.2, [place] # (Auto) 1.0, Eos # (Auto) 0.2, Baso # (Auto) 0.1, Absolute Nucleated RBC 0.00, Nucleated RBC % 0.0 Fish Bones: 12/01/19 05:22 12/01/19 05:22 Home Medications and Allergies Home Medications: Ambulatory Orders Ibuprofen 400 - 600 mg PO BID PRN 11/30/19 lisinopriL [Lisinopril] 20 mg PO DAILY 11/30/19 Active Medications Acetaminophen (Ofirmev) 100 mls @ 400 mls/hr IV Q6HR PRN PRN Reason: PAIN Potassium Chloride/Sodium Chloride (Normal Saline 0.9% W/20 Meq Kcl) 1,000 mls @ 75 mls/hr IV .[id number] [facility] Last Admin: 12/01/19 10:56 Dose: 75 mls/hr Lidocaine HCl (Xylocaine Uro-Jet 2%) 2.5 ml UR Q6H PRN PRN Reason: PAIN Last Admin: 12/01/19 13:08 Dose: 2.5 ml Pantoprazole Sodium (Protonix) 40 mg IVP QDAC [facility] Last Admin: 12/01/19 05:24 Dose: 40 mg Potassium Chloride (K-Dur) 20 meq PO ONCE ONE Stop: 12/01/19 14:31 Sodium Chloride (Normal Saline Flush 0.9%) 10 ml IVP PRN PRN PRN Reason: NEEDED PER PROVIDER ORDERS Last Admin: 12/01/19 05:25 Dose: 10 ml Sodium Chloride (Normal Saline Flush 0.9%) 10 ml IVP 0100,0900,1700 [facility] Last Admin: 12/01/19 05:24 Dose: 10 ml Tamsulosin HCl (Flomax) 0.4 mg PO BID [facility] Last Admin: 12/01/19 10:58 Dose: 0.4 mg Tamsulosin HCl [Flomax] 0.4 mg PO BID 09/28/18 Ibuprofen 400 - 600 mg PO BID PRN 11/30/19 lisinopriL [Lisinopril] 20 mg PO DAILY 11/30/19 Allergies/Adverse Reactions: Allergies Allergy/AdvReac Type Severity Reaction Status Date / Time No Known Drug Allergies Allergy Verified 09/28/18 18:11 Anes History & Medical History - Anesthetic History Anesthesia Complications: reports: No previous complications Family history of Anesthesia Complications: Denies Family history of Malignant Hyperthermia: Denies - Medical History Cardiovascular: reports: Hypertension Pulmonary: reports: None Gastrointestinal: reports: None Urinary: reports: Benign prostate hypertrophy Neuro: reports: Headaches Musculoskeletal: reports: None Endocrine/Autoimmune: reports: None Blood Disorders: reports: None Skin: reports: None Smoking Status: Never smoker Psychosocial: reports: No issues indicated - Surgical History General: Colonoscopy, Other (umbilical hernia repair 10/2019) Exam General: Alert, Oriented x3, Cooperative Dental: WNL Mouth Openin Fingerbreadth Neck Mobility: Normal Mallampati classification: I Thyromental Distance: greater than 6 cm Respiratory: Lungs clear, Normal breath sounds Cardiovascular: Regular rate Neurological: Normal speech Mental/Cognitive Status: Alert/Oriented X3, Normal for patient Cognitive Status: Within normal limits Plan Anesthesia Type: MAC Consent for Procedure(s) Verified and Reviewed: Yes Code Status: Attempt Resuscitation ASA classification: 2-Mild systemic disease Is this case an emergency?: No
[2019-12-01] MEDS ORDERED: POTASSIUM CHLORIDE 20 MEQ TABLET PO ONE ×2 (14:30→16:30)
[2019-12-01] MEDS ORDERED: fentaNYL 100 MCG/2 ML VIAL IVP ONE (15:30)
[2019-12-01] MEDS ORDERED: MIDAZOLAM 2 MG/2 ML VIAL IVP ONE (15:30)
[2019-12-01] MEDS ORDERED: PROPOFOL 200 MG/20 ML VIAL IVP ONE (15:30)
[2019-12-01] MEDS ORDERED: LACTATED RINGERS 1,000 ML IV ONE (15:33)
--- NOTE | 2019-12-01 16:47 | MISCELLANEOUS PROVIDER NOTE ---
Miscellaneous Provider Note - - Note: SURGERY Diagnostic colonosocpy completed. Findings include moderate to severe di verticulosis and a single AVM. Bleeding most likely due to former. Discussed with pt and , reviewed precautions and diet modifications. OK for diet advancement and d/c per surgery. Resume previous screening colonoscopy plan. Pt can follow up with our office on an as-needed basis.
[2019-12-01 18:13] LABS: HGB - HEMOGLOBIN 9.3 g/dL (14.0-18.0); MEAN CORPUSCULAR HEMOGLOBIN 30.6 pg (27.0-31.0); MEAN CORPUSCULAR HGB CONC 33.5 g/dL (32.0-36.0); MEAN CORPUSCULAR VOLUME 91.4 fL (80.0-94.0); MEAN PLATELET VOLUME 10.9 fL (7.4-11.4); RED BLOOD COUNT 3.04 10^6/uL (4.70-6.10); RED CELL DISTRIBUTION WIDTH 12.9 % (12.0-15.0)
--- NOTE | 2019-12-01 18:31 | Discharge Plan ---
Discharge Plan Problem Reviewed?: Yes Disposition: Home, Self Care Condition: Good Prescriptions: Wheat Dextrin [Benefiber] 1 each PO DAILY #30 packet Diet: Soft Activity Restrictions: Activity as Tolerated Shower Restrictions: No Instruction Topics: Tamsulosin capsules, Diverticulosis Diverticulitis, Catheter Indwelling Urinary Dc, Catheter Bag Urinary Empty Clean, Leg Bag Care Dc Health Concerns: Rectal bleeding Diverticulosis BPH (enlarged prostate) Urinary retention Indwelling goncalves NSAID use Plan of Treatment: Take Benefiber daily for the treatment of diverticulosis Eat a soft diet Cut back on the NSAID use Continue with the indwelling goncalves due to the significant urinary retention and your inability to urinate Continue with your usual dose of flomax twice daily See Urology, Dr. Motta will be getting a copy of my discharge summary to know to allow for an early appointment See your primary care by the end of the week for follow up lab testing, and to make sure things are going well with the goncalves Care Goals: Prevent bleeding Prevent hospital stays or ED visits Prevent bladder damage by maintaining the indwelling goncalves Assessment: You were admitted to the hospital for GI bleeding. General surgery was consulted and an upper endoscope showed no cause of your bleeding. A colonoscopy today showed diverticulosis, resulting in the bleeding events. During your stay, you had significant urinary retention, that cannot be explained by missing 2-3 doses of your Flomax given the large amount of urine that was being retained. An indwelling catheter needs to stay in to preserve the lining of your bladder and to prevent further damage. A soft diet was well tolerated and you have not lost enough blood to require a blood transfusion today. You had conscious sedation, so a few hours was needed for you to recover. You will remain tired tonight, so you should rest. Instructions on a soft diet was given. Teaching from nursing on the proper use of the indwelling goncalves was performed. Leg bags were also given for times of travel. You are medically stable and free to return home with your . No Smoking: If you smoke, Please STOP! Call for help. Follow-up with: Christi Saunders DO [Primary Care Provider] -
--- NOTE | 2019-12-01 18:47 | DISCHARGE SUMMARY ---
"Discharge Summary Admit Date: 11/30/19 Discharge Date: 12/01/19 Discharging Provider: SHADI Francis Primary Care Provider: Christi Saunders Code Status: Attempt Resuscitation Condition at Discharge: Good Discharge Disposition: 01 Home, Self Care - DIAGNOSES Admission Diagnoses: GI bleed Hypertension BPH (benign prostatic hyperplasia) Discharge Diagnoses with Status of Each Condition: Lower GI bleed-Present on admission, most likely diverticulosis as the source, stable Diverticulosis of colon-Found in old records from last colonoscopy, prescribed Benefiber daily Acute blood loss anemia-New during this admission, stable, no blood transfusion was given, needs follow up labs Indwelling goncalves catheter in place-New during this hospital stay, needs prompt follow up Urinary retention-Bladder scans recorded at >900 mL, indicated indwelling goncalves to remain in place to prevent further complications and/or ED visit, teaching was completed by nursing of proper goncalves care prior to returning home BPH (benign prostatic hyperplasia) with obstruction/lower urinary tract symptoms-Sees Urology, takes flomax BID, now with an indwelling goncalves Hypertension-Chronic, stable Frequent headaches-Chronic, outpatient treatments have nearly resolved these, stable - HPI History of Present Illness: Hema Elliott is a 79-year old male with a past medical history of hypertension, BPH, nocturia, and headaches. The patient presented to the ED via private car driven by his with a primary complaint of bright red blood per rectum. He states that he woke up approximately 1 hour ago, felt like he had to have a bowel movement, and had 4 bloody BMs with profound dizziness. ED staff reported that the patient appeared to be passed out in the wheelchair, with copious blood on floor, in pants, and in the wheel chair. Initially, the patient was very weak, appeared pale, & cool. He denied abdominal pain during these events or currently. He denied chest pain, shortness of breath, a recent illness, confusion, a history of cancer, nausea, vomiting, or prior bleeding events. Records were obtained from [facility] showing a history of colon polyps, sigmoid diverticulosis, with nothing else remarkable. Vital signs were; heart rate 55, blood pressure 107/70, respiratory rate 18, oxygen saturation on room air 95%, temperature 34.6 C. Labs showed a hemoglobin of 12.4, Hct 37.4, WBC normal at 7.3, BUN 29, GFR 72, glucose 144, lactic acid 2.5, with no other abnormalities. A general surgery consult was made with Dr. Rohan Chavez who plans on an upper endoscope after learning of the patients chronic NSAID daily use to rule out a gastric ulcer. If normal, attempt to do a colonoscopy after a bowel prep. He will continue to get serial H/Hs, IV fluids, and NPO for now. - CONSULTS | PROCEDURES Consultations: General surgery, Dr. Rohan Chavez, General surgery, Dr. Mao Tabler Procedures: EGD Colonoscopy - HOSPITAL COURSE Hospital Course: You were admitted to the hospital for GI bleeding. General surgery was consulted and an upper endoscope showed no cause of your bleeding. A colonoscopy today showed diverticulosis, resulting in the bleeding events. During your stay, you had significant urinary retention, that cannot be explained by missing 2-3 doses of your Flomax given the large amount of urine that was being retained. An indwelling catheter needs to stay in to preserve the lining of your bladder and to prevent further damage. A soft diet was well tolerated and you have not lost enough blood to require a blood transfusion today. You had conscious sedation, so a few hours was needed for you to recover. You will remain tired tonight, so you should rest. Instructions on a soft diet was given. Teaching from nursing on the proper use of the indwelling goncalves was performed. Leg bags were also given for times of travel. You are medically stable and free to return home with your . - ALLERGIES Allergies/Adverse Reactions: Allergies Allergy/AdvReac Type Severity Reaction Status Date / Time No Known Drug Allergies Allergy Verified 09/28/18 18:11 - MEDICATIONS Home Medications: Ambulatory Orders Medication Instructions Recorded Confirmed Tamsulosin HCl [Flomax] 0.4 mg PO BID 09/28/18 11/30/19 Ibuprofen 400 - 600 mg PO BID PRN 11/30/19 11/30/19 lisinopriL [Lisinopril] 20 mg PO DAILY 11/30/19 11/30/19 Wheat Dextrin [Benefiber] 1 each PO DAILY #30 packet 12/01/19 - PHYSICAL EXAM AT DISCHARGE General Appearance: positive: No acute distress, Alert Eyes Bilateral: positive: PERRL, No lid inflammation ENT: positive: Pharynx nml, No signs of dehydration Neck: positive: Thyroid nml, No JVD, Trachea midline Respiratory: positive: Chest non-tender, No respiratory distress, Breath sounds nml Cardiovascular: positive: Regular rate & rhythm, No gallop, Systolic murmur Peripheral Pulses: positive: 2+ Abdomen: positive: Non-tender, Nml bowel sounds, Other (rounded, soft) Back: positive: Nml inspection Skin: positive: No rash, Warm, Dry, Other (pale, slightly bronze) Extremities: positive: Non-tender, Full ROM, No pedal edema, Joint swelling Neurologic/Psychiatric: positive: Oriented x3, CN's nml (2-12), Motor nml, Sensation nml, Mood/affect nml Reflexes: Bicep (R): 3+, Bicep (L): 3+ - LABS Result Diagrams: 12/01/19 18:00 12/01/19 05:22 - FOLLOW UP Follow Up: Continue with the indwelling goncalves due to the significant urinary retention and your inability to urinate Continue with your usual dose of flomax twice daily See Urology, Dr. Motta will be getting a copy of my discharge summary to know to allow for an early appointment See your primary care by the end of the week for follow up lab testing, and to make sure things are going well with the goncalves - TIME SPENT Time Spent in Discharge (Minutes): 60"
[2019-12-01 19:22] VITALS: BP 132/68
== END 2019-12-01 20:31 | disposition home or self-care (01) ==
LOC: ED 01:29 → MS2 02:51
PROVIDERS: ADMIT Internal Medicine; ATTEND Nurse Practitioner
PROC: 0DJ08ZZ Inspection of Upper Intestinal Tract, Via Natural or Artificial Opening Endoscopic (ICD-10-PCS; principal; 2019-11-30 14:45)
PROC: 0DJD8ZZ Inspection of Lower Intestinal Tract, Via Natural or Artificial Opening Endoscopic (ICD-10-PCS; 2019-12-01)
DX: K57.31 Diverticulosis of large intestine without perforation or abscess with bleeding (principal); D62 Acute posthemorrhagic anemia; Q27.33 Arteriovenous malformation of digestive system vessel; I10 Essential (primary) hypertension; N40.1 Benign prostatic hyperplasia with lower urinary tract symptoms; N13.8 Other obstructive and reflux uropathy; R35.1 Nocturia; R51 Headache; Z79.1 Long term (current) use of non-steroidal anti-inflammatories (NSAID)
CPT/HCPCS: 36415; 43235; 45378; 51701; 71045; 74018; 80048; 80076; 81003; 82140; 82550; 83605; 83880; 84484; 85025; 85027; 85610; 85730; 86850; 86900; 86901; 86920; 93005; 96360; 99285; 99291; A9270; G0378; J7120; 80306; 80307; 80320; 80329; 81001; 87086

== ENCOUNTER 2021-09-12 08:00 | Outpatient (CLI) | payer MEDICARE, OTHER | END 2021-09-12 23:59 | LOC: LAB.N 08:00 | PROVIDERS: ATTEND Family Medicine | DX: J39.2 Other diseases of pharynx (principal) | CPT/HCPCS: 87070 ==

== ENCOUNTER 2022-08-09 08:06 | Emergency (ER) | payer MEDICARE, OTHER ==
[2022-08-09 09:06] LABS: BASOPHILS % (AUTO) 0.5 %; EOSINOPHILS # (AUTO) 0.1 10^3/uL (0.0-0.7); EOSINOPHILS % (AUTO) 0.8 %; HCT - HEMATOCRIT 42.3 % (42.0-52.0); LYMPHOCYTES # (AUTO) 0.9 10^3/uL (1.5-3.5); LYMPHOCYTES % (AUTO) 15.3 %; MEAN CORPUSCULAR HEMOGLOBIN 30.6 pg (27.0-31.0); MEAN CORPUSCULAR HGB CONC 33.1 g/dL (32.0-36.0); MEAN CORPUSCULAR VOLUME 92.4 fL (80.0-94.0); MEAN PLATELET VOLUME 10.7 fL (7.4-11.4); MONOCYTES # (AUTO) 0.5 10^3/uL (0.0-1.0); MONOCYTES % (AUTO) 8.5 %; NEUTROPHILS # (AUTO) 4.4 10^3/uL (1.5-6.6); NEUTROPHILS % (AUTO) 74.6 %; PLT - PLATELET COUNT 179 10^3/uL (130-450); RED BLOOD COUNT 4.58 10^6/uL (4.70-6.10); RED CELL DISTRIBUTION WIDTH 12.6 % (12.0-15.0); WHITE BLOOD COUNT 5.9 x10^3/uL (4.8-10.8)
[2022-08-09 09:21] LABS: ALBUMIN 3.9 g/dL (3.2-5.5); ALBUMIN/GLOBULIN RATIO 1.3 (1.0-2.2); BILIRUBIN,TOTAL 0.6 mg/dL (0.2-1.0); CALCIUM 9.3 mg/dL (8.5-10.3); CREATININE 0.8 mg/dL (0.6-1.2)
--- NOTE | 2022-08-09 09:55 | ED Physician Documentation ---
History of Present Illness - Stated complaint Stated Complaint: DEHYRDRATED/SHAKES - Chief complaint Chief Complaint: General - History obtained from History obtained from: Patient - Additonal information Additional information: Patient is an 82-year-old male presenting for evaluation of feeling dehydrated and nausea this morning. He reports doing more activity yesterday and had trouble sleeping overnight. He was eventually able to get some good sleep but when he woke up this morning he felt nauseous. His symptoms lasted for an hour. He did drink 4 bottles of water and ate breakfast and his symptoms resolved. He currently denies any complaints. He denies ever having a headache, chest pain, dizziness, feeling near syncopal, difficulty breathing, focal weakness, abdominal pain, vomiting or diarrhea. Review of Systems Constitutional: denies: Fever Nose: denies: Congestion Cardiac: denies: Chest pain / pressure Respiratory: denies: Dyspnea, Cough GI: denies: Abdominal Pain, Vomiting, Diarrhea : denies: Dysuria Musculoskeletal: denies: Back pain Neurologic: denies: Syncope, Headache PD PAST MEDICAL HISTORY - Past Medical History Past Medical History: Yes Cardiovascular: Hypertension Respiratory: None Neuro: Headaches Endocrine/Autoimmune: None GI: None : Benign prostate hypertrophy HEENT: None Psych: None Musculoskeletal: None Derm: None - Past Surgical History Past Surgical History: No General: Colonoscopy, Other - Present Medications Home Medications: Ambulatory Orders Medication Instructions Recorded Confirmed Tamsulosin HCl [Flomax] 0.4 mg PO BID 09/28/18 11/30/19 Ibuprofen 400 - 600 mg PO BID PRN 11/30/19 11/30/19 lisinopriL [Lisinopril] 20 mg PO DAILY 11/30/19 11/30/19 Wheat Dextrin [Benefiber] 1 each PO DAILY #30 packet 12/01/19 - Allergies Allergies/Adverse Reactions: Allergies Allergy/AdvReac Type Severity Reaction Status Date / Time No Known Drug Allergies Allergy Verified 08/09/22 08:35 - Social History Does the pt smoke?: No Smoking Status: Never smoker Does the pt drink ETOH?: No Does the pt have substance abuse?: No - Immunizations Immunizations are current?: Yes - POLST Patient has POLST: No POLST Status: Full Code PD ED PE NORMAL - General General: Alert and oriented X 3, No acute distress, Well developed/nourished - HEENT HEENT: Atraumatic, Moist mucous membranes - Neck Neck: Supple, no meningeal sign - Cardiac Cardiac: RRR, Strong equal pulses - Respiratory Respiratory: No respiratory distress, Clear bilaterally - Abdomen Abdomen: Normal bowel sounds, Soft, Non tender, Non distended - Derm Derm: Warm and dry - Extremities Extremities: No edema - Neuro Neuro: Alert and oriented X 3, 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, No motor deficit, No sensory def icit, Normal speech, Other (Normal gait) Results - Vitals Vitals: Vital Signs - 24 hr 08/09/22 08/09/22 08:32 10:00 Temperature 36.0 C L 36.5 C Heart Rate 62 57 L Respiratory 16 18 Rate Blood Pressure 178/88 H 156/78 H O2 Saturation 99 98 Oxygen O2 Source Room air - EKG (time done) 0916 Rate: Rate (enter#) (65) Rhythm: NSR Ischemia: No: ST elevation c/w ischemia - Labs Labs: Laboratory Tests 08/09/22 08/09/22 09:02 09:02 WBC 5.9 RBC 4.58 L Hgb 14.0 Hct 42.3 MCV 92.4 MCH 30.6 MCHC 33.1 RDW 12.6 Plt Count 179 MPV 10.7 Neut # (Auto) 4.4 Lymph # (Auto) 0.9 L [place] # (Auto) 0.5 Eos # (Auto) 0.1 Baso # (Auto) 0.0 Absolute Nucleated RBC 0.00 Nucleated RBC % 0.0 Sodium 134 L Potassium 5.0 Chloride 99 L Carbon Dioxide 27 Anion Gap 8.0 BUN 20 Creatinine 0.8 Estimated GFR (MDRD) 93 Glucose 97 Calcium 9.3 Total Bilirubin 0.6 AST 25 ALT 17 Alkaline Phosphatase 69 Total Protein 7.0 Albumin 3.9 Globulin 3.1 Albumin/Globulin Ratio 1.3 Lipase 42 PD MEDICAL DECISION MAKING - ED course Complexity details: reviewed results, re-evaluated patient ED course: Pt presenting for feeling dehydrated and nauseous this morning, now feeling better. BP slightly elevated but otherwise VSS. No CP/SOB to suggest cardiac etiology. No neuro deficits to suggest stroke. ABdominal exam is benign. Labs reassuring. Pt counseled to take it easy today and make sure he is eating/drinking well throughout the day. Advised to return to ER with any concerning symptoms. Departure - Departure Disposition: 01 Home, Self Care Clinical Impression: Generalized weakness Condition: Stable Instructions: ED Weakness UKO Follow-Up: Christi Saunders DO [Primary Care Provider] - Comments: I am unsure as to what was making you feel unwell this morning but I am happy that your symptoms have resolved. Your labs are normal. Please continue with making sure you eat and drink well through today. I would also try and take it easier with your normal activity. If you have any new or worrisome symptoms please return to the emergency department. Discharge Date/Time: 08/09/22 10:01
[2022-08-09 10:02] VITALS: BP 156/78
== END 2022-08-09 10:01 | disposition home or self-care (01) ==
LOC: ED 08:06
DX: R53.1 Weakness (principal); I10 Essential (primary) hypertension
CPT/HCPCS: 36415; 80053; 83690; 85025; 93005; 99282; 99283

== ENCOUNTER 2022-11-18 11:23 | Emergency (ER) | payer MEDICARE, OTHER ==
--- NOTE | 2022-11-18 11:40 | ED Physician Documentation ---
History of Present Illness - Stated complaint Stated Complaint: THROAT PX, HIGH BP - Chief complaint Chief Complaint: Heent - History obtained from History obtained from: Patient - Additonal information Additional information: V healthy 82yo male with intermittent diff swallowing x 1-2 weeks. Feels like water getting stuck. Does not happen with solids. Some congestion Noted throat redness today, but not painful some chills/body aches no weight loss no hx cancer no stroke sx PD PAST MEDICAL HISTORY - Past Medical History Cardiovascular: Hypertension Respiratory: None Neuro: Headaches Endocrine/Autoimmune: None GI: None : Benign prostate hypertrophy HEENT: None Psych: None Musculoskeletal: None Derm: None - Past Surgical History Past Surgical History: No General: Colonoscopy, Other - Present Medications Home Medications: Ambulatory Orders Medication Instructions Recorded Confirmed lisinopriL [Lisinopril] 40 mg PO DAILY 11/30/19 11/18/22 - Allergies Allergies/Adverse Reactions: Allergies Allergy/AdvReac Type Severity Reaction Status Date / Time No Known Drug Allergies Allergy Verified 11/18/22 11:29 - Social History Does the pt smoke?: No Smoking Status: Never smoker Does the pt drink ETOH?: No Does the pt have substance abuse?: No - Immunizations Immunizations are current?: Yes - POLST Patient has POLST: No POLST Status: Full Code PD ED PE NORMAL - Vitals Vital signs reviewed: Yes - General General: Alert and oriented X 3, No acute distress, Well developed/nourished - HEENT HEENT: Pharynx benign, Other (no visibile abn of OP) - Neck Neck: Supple, no meningeal sign, No bony TTP, No bruit - Cardiac Cardiac: RRR, No murmur - Respiratory Respiratory: No respiratory distress, Clear bilaterally - Abdomen Abdomen: Non tender - Neuro Neuro: Alert and oriented X 3, 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 2-12 intact, No motor deficit, No sensory deficit, Normal speech Eye Opening: Spontaneous Motor: Obeys Commands Verbal: Oriented GCS Score: 15 Results - Vitals Vitals: Vital Signs - 24 hr 11/18/22 11:27 Temperature 36.2 C L Heart Rate 57 L Respiratory 16 Rate Blood Pressure 159/86 H O2 Saturation 99 Oxygen O2 Source Room air - Labs Labs: Laboratory Tests 11/18/22 11/18/22 11/18/22 11:53 11:53 11:57 WBC 6.3 RBC 4.69 L Hgb 14.0 Hct 43.4 MCV 92.5 MCH 29.9 MCHC 32.3 RDW 12.9 Plt Count 183 MPV 11.0 Neut # (Auto) 4.5 Lymph # (Auto) 1.0 L [place] # (Auto) 0.6 Eos # (Auto) 0.1 Baso # (Auto) 0.0 Absolute Nucleated RBC 0.00 Nucleated RBC % 0.0 Sodium 137 Potassium 4.3 Chloride 102 Carbon Dioxide 26 Anion Gap 9.0 BUN 19 Creatinine 0.8 Estimated GFR (MDRD) 93 Glucose 89 Calcium 9.0 Nasal Adenovirus (PCR) Nasal B. parapertussis DNA (PCR) Nasal Coronavir 229E PCR Nasal Coronavir HKU1 PCR Nasal Coronavir NL63 PCR Nasal Coronavir OC43 PCR Nasal Enterovir/Rhinovir PCR Nasal Influenza B PCR Nasal Influenza A PCR Nasal Parainfluen 1 PCR Nasal Parainfluen 2 PCR Nasal Parainfluen 3 PCR Nasal Parainfluen 4 PCR Nasal RSV (PCR) Nasal B.pertussis DNA PCR Nasal C.pneumoniae (PCR) Bob Human Metapneumo PCR Nasal M.pneumoniae (PCR) Nasal SARS-CoV-2 (PCR) Group A Strep Rapid Negative 11/18/22 11:57 WBC RBC Hgb Hct MCV MCH MCHC RDW Plt Count MPV Neut # (Auto) Lymph # (Auto) [place] # (Auto) Eos # (Auto) Baso # (Auto) Absolute Nucleated RBC Nucleated RBC % Sodium Potassium Chloride Carbon Dioxide Anion Gap BUN Creatinine Estimated GFR (MDRD) Glucose Calcium Nasal Adenovirus (PCR) NOT DETECTED Nasal B. parapertussis DNA (PCR) NOT DETECTED Nasal Coronavir 229E PCR NOT DETECTED Nasal Coronavir HKU1 PCR NOT DETECTED Nasal Coronavir NL63 PCR NOT DETECTED Nasal Coronavir OC43 PCR NOT DETECTED Nasal Enterovir/Rhinovir PCR NOT DETECTED Nasal Influenza B PCR NOT DETECTED Nasal Influenza A PCR NOT DETECTED Nasal Parainfluen 1 PCR NOT DETECTED Nasal Parainfluen 2 PCR NOT DETECTED Nasal Parainfluen 3 PCR NOT DETECTED Nasal Parainfluen 4 PCR NOT DETECTED Nasal RSV (PCR) NOT DETECTED Nasal B.pertussis DNA PCR NOT DETECTED Nasal C.pneumoniae (PCR) NOT DETECTED Bob Human Metapneumo PCR NOT DETECTED Nasal M.pneumoniae (PCR) NOT DETECTED Nasal SARS-CoV-2 (PCR) NOT DETECTED Group A Strep Rapid - Rads (name of study) CT soft tissue neck Radiology: Final report received, EMP read indepedently PD Medical Decision Making - ED course ED course: 82-year-old gentleman presents with difficulty swallowing liquids only. No clinical evidence of stroke although this is considered. Tumor would be a possibility and as such a CT of the neck was done without pertinent positive findings. Infection also a possibility but strep and bio fire respiratory panel is negative. That said this does not rule out all infectious causes. Departure - Departure Disposition: 01 Home, Self Care Clinical Impression: Dysphagia Qualifiers: Dysphagia type: pharyngeal phase Qualified Code(s): R13.13 - Dysphagia, pharyngeal phase Condition: Good Record reviewed to determine appropriate education?: Yes Instructions: ED Pharyngitis Viral Report Pending Comments: Thankfully, your strep test, COVID test, and CAT scan were negative/normal without evidence of tumor or other infection. Likely the cause of your sore throat is viral and it should pass on its own. That said it is reasonable to follow-up with an ENT physician for nasolaryngoscopy if not better in the next few days to week. The closest is in [place]. The phone number is [phone]. Return if worse.
[2022-11-18] MEDS ORDERED: iohexoL-300 100 ML VIAL ONE (11:41)
[2022-11-18 12:06] LABS: BASOPHILS % (AUTO) 0.6 %; EOSINOPHILS # (AUTO) 0.1 10^3/uL (0.0-0.7); EOSINOPHILS % (AUTO) 1.4 %; HCT - HEMATOCRIT 43.4 % (42.0-52.0); LYMPHOCYTES % (AUTO) 15.3 %; MEAN CORPUSCULAR HEMOGLOBIN 29.9 pg (27.0-31.0); MEAN CORPUSCULAR HGB CONC 32.3 g/dL (32.0-36.0); MEAN CORPUSCULAR VOLUME 92.5 fL (80.0-94.0); MONOCYTES # (AUTO) 0.6 10^3/uL (0.0-1.0); MONOCYTES % (AUTO) 9.9 %; NEUTROPHILS # (AUTO) 4.5 10^3/uL (1.5-6.6); NEUTROPHILS % (AUTO) 72.5 %; PLT - PLATELET COUNT 183 10^3/uL (130-450); RED BLOOD COUNT 4.69 10^6/uL (4.70-6.10); RED CELL DISTRIBUTION WIDTH 12.9 % (12.0-15.0); WHITE BLOOD COUNT 6.3 x10^3/uL (4.8-10.8)
[2022-11-18 12:12] LABS: CREATININE 0.8 mg/dL (0.6-1.2); POTASSIUM 4.3 mmol/L (3.5-5.0)
[2022-11-18 12:16] LABS: RAPID STREP SCREEN Negative (Negative)
--- OUTSIDE RECORDS SUMMARY | 2022-11-18 12:22 | EXTERNAL MEDICAL SUMMARY RPT | Continuity of Care Document ---
:1940 Author Organization [facility] Address [address] [place] [id number] Phone Care Team Providers Name Role Phone Salma Gage Unavailable Unavailable Allergies No information. Encounters No information. Functional Status No information. Immunizations No information. Medications No information. Problems No information. Procedures No information. Results/Labs test date author facility value unit interpret ation Result panel 1 (unknown) (no (unknown) (unknown) (no value) (units (unk nown) date) unknown) (unknown) (no (unknown) (unknown) 08/30/22 (units (unkno wn) date) unknown) (unknown) (no (unknown) (unknown) [id number] (units (unkno wn) date) unknown) (unknown) (no (unknown) (unknown) 82 year old male presents (units (unknown) date) to clinic for medicare unknown ) wellness exam. 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 unknown) (unknown) (no (unknown) (unknown) BRBPR (bright red blood ( units (unknown) date) per rectum) unknown) (unknown) (no (unknown) (unknown) Benign prostatic (units (unknown) date) hyperplasia unknown) (unknown) (no (unknown) (unknown) Brother Lung (un its (unknown) date) cancer unknown) (unknown) (no (unknown) (unknown) Carpal tunnel syndrome (u nits (unknown) date) unknown) (unknown) (no (unknown) (unknown) Chickenpox (units (unk nown) date) unknown) (unknown) (no (unknown) (unknown) : 1940 (units (unknown) date) Acct:[id number] unknown) (unknown) (no (unknown) (unknown) Depression (units (unk nown) date) unknown) (unknown) (no (unknown) (unknown) Dept at . (u nits (unknown) date) unknown) (unknown) (no (unknown) (unknown) Diverticular disease (uni ts (unknown) date) unknown) (unknown) (no (unknown) (unknown) Diverticulosis of colon ( units (unknown) date) unknown) (unknown) (no (unknown) (unknown) Documented By: Salma Gage (units (unknown) date) 09/03/22 1136 unknown) (unknown) (no (unknown) (unknown) Draft (units (unkno wn) date) unknown) (unknown) (no (unknown) (unknown) Family History (Reviewed (units (unknown) date) 05/26/21 @ 16:59 by Jefe careyk florentin) MD Rohan) (unknown) (no (unknown) (unknown) Family Practice Office (u nits (unknown) date) Visit unknown) (unknown) (no (unknown) (unknown) Father Cancer (u nits (unknown) date) unknown) (unknown) (no (unknown) (unknown) [facility] (units (unknown) date) unknown) (unknown) (no (unknown) (unknown) GERD (gastroesophageal (u nits (unknown) date) reflux disease) unknown) (unknown) (no (unknown) (unknown) H/O umbilical hernia (uni ts (unknown) date) repair () unknown) (unknown) (no (unknown) (unknown) Health Management reviewed (units (unknown) date) with patient: Yes unknown) (unknown) (no (unknown) (unknown) Health Management (units (unknown) date) unknown) (unknown) (no (unknown) (unknown) Hemorrhoids (units (un known) date) unknown) (unknown) (no (unknown) (unknown) History of (units (unk nown) date) esophagogastroduodenoscopy unk nown) (EGD) (06/03/12) (unknown) (no (unknown) (unknown) History of prostate biopsy (units (unknown) date) () unknown) (unknown) (no (unknown) (unknown) History of prostate biopsy (units (unknown) date) () unknown) (unknown) (no (unknown) (unknown) History of whiplash injury (units (unknown) date) unknown) (unknown) (no (unknown) (unknown) Hypertension (units (u nknown) date) unknown) (unknown) (no (unknown) (unknown) Impacted ear wax (units (unknown) date) unknown) (unknown) (no (unknown) (unknown) Intake Note: (units (u nknown) date) unknown) (unknown) (no (unknown) (unknown) Intake performed by: (uni ts (unknown) date) Alva Aburto unknown) (unknown) (no (unknown) (unknown) Intake (units (unkno wn) date) unknown) (unknown) (no (unknown) (unknown) Intake- Clincial Staff (u nits (unknown) date) unknown) (unknown) (no (unknown) (unknown) Left hand dominant (units (unknown) date) unknown) (unknown) (no (unknown) (unknown) Loc: [facility] (units (unkno wn) date) unknown) (unknown) (no (unknown) (unknown) Lung cancer (units (un known) date) unknown) (unknown) (no (unknown) (unknown) Measles (units (unkno wn) date) unknown) (unknown) (no (unknown) (unknown) Medical History (Reviewed (units (unknown) date) 05/26/21 @ 16:59 by Jefe Madrigal MD) (unknown) (no (unknown) (unknown) Mother Cancer (u nits (unknown) date) unknown) (unknown) (no (unknown) (unknown) Mumps (units (unkno wn) date) unknown) (unknown) (no (unknown) (unknown) No Known Drug Allergies ( units (unknown) date) Allergy (Verified 09/03/22 unk nown) 11:37) (unknown) (no (unknown) (unknown) PFSH (units (unkno wn) date) unknown) (unknown) (no (unknown) (unknown) Patient: Hema Elliott ( units (unknown) date) MR#: [id number] unknown) (unknown) (no (unknown) (unknown) Plantar warts (units ( unknown) date) unknown) (unknown) (no (unknown) (unknown) Reason For Visit (units (unknown) date) unknown) (unknown) (no (unknown) (unknown) Rubella (units (unkno wn) date) unknown) (unknown) (no (unknown) (unknown) S/P TURP (status post (un its (unknown) date) transurethral resection of unk nown) prostate) () (unknown) (no (unknown) (unknown) Signed By: (units (unk nown) date) unknown) (unknown) (no (unknown) (unknown) Sister Age: 77 No problems (units (unknown) date) noted. unknown) (unknown) (no (unknown) (unknown) Smoker (units (unkno wn) date) unknown) (unknown) (no (unknown) (unknown) Smoking Status: Former (u nits (unknown) date) smoker unknown) (unknown) (no (unknown) (unknown) Social History (units (unknown) date) unknown) (unknown) (no (unknown) (unknown) Son Femur fracture (units (unknown) date) unknown) (unknown) (no (unknown) (unknown) Son No problems noted. (u nits (unknown) date) unknown) (unknown) (no (unknown) (unknown) Status post breast biopsy (units (unknown) date) () unknown) (unknown) (no (unknown) (unknown) Status post colonoscopy ( units (unknown) date) (11/2019) unknown) (unknown) (no (unknown) (unknown) Status post eye surgery ( units (unknown) date) (12/19/10) unknown) (unknown) (no (unknown) (unknown) Surgical History (Reviewed (units (unknown) date) 05/26/21 @ 16:59 by Jefe lerma) MD Rohan) (unknown) (no (unknown) (unknown) Temporal arteritis (units (unknown) date) unknown) (unknown) (no (unknown) (unknown) This note may have been ( units (unknown) date) all or partially generated reena lerma) using voice recognition (unknown) (no (unknown) (unknown) Tobacco + Substance Use ( units (unknown) date) unknown) (unknown) (no (unknown) (unknown) Tobacco Status (units (unknown) date) unknown) (unknown) (no (unknown) (unknown) Tubular adenoma (-2011) ( units (unknown) date) unknown) (unknown) (no (unknown) (unknown) Urinary retention due to (units (unknown) date) benign prostatic unknown) hyperplasia (unknown) (no (unknown) (unknown) Visit Reasons: NTY (units (unknown) date) Medicare well visit * unknown) Chip* (unknown) (no (unknown) (unknown) alcohol intake: current ( units (unknown) date) unknown) (unknown) (no (unknown) (unknown) have occurred. If there ( units (unknown) date) are any questions, please unkn own) contact the Medical Records (unknown) (no (unknown) (unknown) household members: spouse (units (unknown) date) unknown) (unknown) (no (unknown) (unknown) marital status: ( units (unknown) date) unknown) (unknown) (no (unknown) (unknown) may occur. Occasional (un its (unknown) date) wrong-word or 'sound-alike' un known) substitutions may have (unknown) (no (unknown) (unknown) occupational status: (uni ts (unknown) date) previously employed unknown) (unknown) (no (unknown) (unknown) occurred due to the (unit s (unknown) date) inherent limitations of unknow n) voice recognition software. Please (unknown) (no (unknown) (unknown) read the note carefully ( units (unknown) date) and recognize, using unknown) context, where these substitutions (unknown) (no (unknown) (unknown) software. 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 unknown) (unknown) (no (unknown) (unknown) BP 140/80 (units (unkn own) date) unknown) (unknown) (no (unknown) (unknown) BRBPR (bright red blood ( units (unknown) date) per rectum) unknown) (unknown) (no (unknown) (unknown) Benign prostatic (units (unknown) date) hyperplasia unknown) (unknown) (no (unknown) (unknown) Blood Pressure Location Lt (units (unknown) date) brachial unknown) (unknown) (no (unknown) (unknown) Brother Lung (un its (unknown) date) cancer unknown) (unknown) (no (unknown) (unknown) Carpal tunnel syndrome (u nits (unknown) date) unknown) (unknown) (no (unknown) (unknown) Chickenpox (units (unk nown) date) unknown) (unknown) (no (unknown) (unknown) : 1940 (units (unknown) date) Acct:[id number] unknown) (unknown) (no (unknown) (unknown) Depression (units (unk nown) date) unknown) (unknown) (no (unknown) (unknown) Dept at . (u nits (unknown) date) unknown) (unknown) (no (unknown) (unknown) Diverticular disease (uni ts (unknown) date) unknown) (unknown) (no (unknown) (unknown) Diverticulosis of colon ( units (unknown) date) unknown) (unknown) (no (unknown) (unknown) Documented By: Salma Gage (units (unknown) date) 09/03/22 1136 unknown) (unknown) (no (unknown) (unknown) Draft (units (unkno wn) date) unknown) (unknown) (no (unknown) (unknown) Family History (Reviewed (units (unknown) date) 05/26/21 @ 16:59 by Jefe lerma) MD Rohan) (unknown) (no (unknown) (unknown) Family Practice Office (u nits (unknown) date) Visit unknown) (unknown) (no (unknown) (unknown) Father Cancer (u nits (unknown) date) unknown) (unknown) (no (unknown) (unknown) [facility] (units (unknown) date) unknown) (unknown) (no (unknown) (unknown) GERD (gastroesophageal (u nits (unknown) date) reflux disease) unknown) (unknown) (no (unknown) (unknown) H/O umbilical hernia (uni ts (unknown) date) repair () unknown) (unknown) (no (unknown) (unknown) Health Management reviewed (units (unknown) date) with patient: Yes unknown) (unknown) (no (unknown) (unknown) Health Management (units (unknown) date) unknown) (unknown) (no (unknown) (unknown) Hemorrhoids (units (un known) date) unknown) (unknown) (no (unknown) (unknown) History of (units (unk nown) date) esophagogastroduodenoscopy aureliok florentin) (EGD) (06/03/12) (unknown) (no (unknown) (unknown) History of prostate biopsy (units (unknown) date) (-1992) unknown) (unknown) (no (unknown) (unknown) History of prostate biopsy (units (unknown) date) () unknown) (unknown) (no (unknown) (unknown) History of whiplash injury (units (unknown) date) unknown) (unknown) (no (unknown) (unknown) Hypertension (units (u nknown) date) unknown) (unknown) (no (unknown) (unknown) Impacted ear wax (units (unknown) date) unknown) (unknown) (no (unknown) (unknown) Intake Note: (units (u nknown) date) unknown) (unknown) (no (unknown) (unknown) Intake performed by: (uni ts (unknown) date) Alva Aburto unknown) (unknown) (no (unknown) (unknown) Intake (units (unkno wn) date) unknown) (unknown) (no (unknown) (unknown) Intake- Clincial Staff (u nits (unknown) date) unknown) (unknown) (no (unknown) (unknown) Left hand dominant (units (unknown) date) unknown) (unknown) (no (unknown) (unknown) Loc: [facility] (units (unkno wn) date) unknown) (unknown) (no (unknown) (unknown) Lung cancer (units (un known) date) unknown) (unknown) (no (unknown) (unknown) Measles (units (unkno wn) date) unknown) (unknown) (no (unknown) (unknown) Medical History (Reviewed (units (unknown) date) 05/26/21 @ 16:59 by Jefe lerma) MD Rohan) (unknown) (no (unknown) (unknown) Medications (units (un known) date) unknown) (unknown) (no (unknown) (unknown) Mother Cancer (u nits (unknown) date) unknown) (unknown) (no (unknown) (unknown) Mumps (units (unkno wn) date) unknown) (unknown) (no (unknown) (unknown) No Known Drug Allergies ( units (unknown) date) Allergy (Verified 09/03/22 unk nown) 11:37) (unknown) (no (unknown) (unknown) Oxygen Delivery Method (u nits (unknown) date) room air unknown) (unknown) (no (unknown) (unknown) PFSH (units (unkno wn) date) unknown) (unknown) (no (unknown) (unknown) Patient: Hema Elliott ( units (unknown) date) MR#: [id number] unknown) (unknown) (no (unknown) (unknown) Plantar warts (units ( unknown) date) unknown) (unknown) (no (unknown) (unknown) Position Sitting (units (unknown) date) unknown) (unknown) (no (unknown) (unknown) Pulse 65 (units (unkno wn) date) unknown) (unknown) (no (unknown) (unknown) Pulse Oximetry (%) 97 (un its (unknown) date) unknown) (unknown) (no (unknown) (unknown) Pulse Source Monitor (uni ts (unknown) date) unknown) (unknown) (no (unknown) (unknown) Reason For Visit (units (unknown) date) unknown) (unknown) (no (unknown) (unknown) Rubella (units (unkno wn) date) unknown) (unknown) (no (unknown) (unknown) S/P TURP (status post (un its (unknown) date) transurethral resection of unk n) prostate) () (unknown) (no (unknown) (unknown) Signed By: (units (unk nown) date) unknown) (unknown) (no (unknown) (unknown) Sister Age: 77 No problems (units (unknown) date) noted. unknown) (unknown) (no (unknown) (unknown) Smoker (units (unkno wn) date) unknown) (unknown) (no (unknown) (unknown) Smoking Status: Former (u nits (unknown) date) smoker unknown) (unknown) (no (unknown) (unknown) Social History (units (unknown) date) unknown) (unknown) (no (unknown) (unknown) Son Femur fracture (units (unknown) date) unknown) (unknown) (no (unknown) (unknown) Son No problems noted. (u nits (unknown) date) unknown) (unknown) (no (unknown) (unknown) Status post breast biopsy (units (unknown) date) () unknown) (unknown) (no (unknown) (unknown) Status post colonoscopy ( units (unknown) date) (11/2019) unknown) (unknown) (no (unknown) (unknown) Status post eye surgery ( units (unknown) date) (12/19/10) unknown) (unknown) (no (unknown) (unknown) Surgical History (Reviewed (units (unknown) date) 05/26/21 @ 16:59 by Jefe lerma) MD Rohan) (unknown) (no (unknown) (unknown) Temp 97.9 F (units (un known) date) unknown) (unknown) (no (unknown) (unknown) Temp Source Temporal (uni ts (unknown) date) Artery Scan unknown) (unknown) (no (unknown) (unknown) Temporal arteritis (units (unknown) date) unknown) (unknown) (no (unknown) (unknown) This note may have been ( units (unknown) date) all or partially generated reena lerma) using voice recognition (unknown) (no (unknown) (unknown) Tobacco + Substance Use ( units (unknown) date) unknown) (unknown) (no (unknown) (unknown) Tobacco Status (units (unknown) date) unknown) (unknown) (no (unknown) (unknown) Tubular adenoma (-2011) ( units (unknown) date) unknown) (unknown) (no (unknown) (unknown) Urinary retention due to (units (unknown) date) benign prostatic unknown) hyperplasia (unknown) (no (unknown) (unknown) Visit Reasons: NTY (units (unknown) date) Medicare well visit * unknown) Chip* (unknown) (no (unknown) (unknown) Vitals (units (unkno wn) date) unknown) (unknown) (no (unknown) (unknown) Weight 149 lb (units ( unknown) date) unknown) (unknown) (no (unknown) (unknown) [Rx Confirmed 09/03/22] ( units (unknown) date) unknown) (unknown) (no (unknown) (unknown) alcohol intake: current ( units (unknown) date) unknown) (unknown) (no (unknown) (unknown) aspirin 81 mg (units ( unknown) date) tablet,delayed release unknown ) (Kim Low Dose Aspirin) 81 mg PO DAILY (unknown) (no (unknown) (unknown) have occurred. If there ( units (unknown) date) are any questions, please unkn own) contact the Medical Records (unknown) (no (unknown) (unknown) household members: spouse (units (unknown) date) unknown) (unknown) (no (unknown) (unknown) lisinopril 20 mg tablet ( units (unknown) date) See Rx Instructions .Route unk nown) .COMPLEX #180 tabs 06/26/22 (unknown) (no (unknown) (unknown) marital status: ( units (unknown) date) unknown) (unknown) (no (unknown) (unknown) may occur. Occasional (un its (unknown) date) wrong-word or 'sound-alike' un known) substitutions may have (unknown) (no (unknown) (unknown) multivitamin 1 tab PO (un its (unknown) date) DAILY 10/30/19 [History unknow n) Confirmed 09/03/22] (unknown) (no (unknown) (unknown) occupational status: (uni ts (unknown) date) previously employed unknown) (unknown) (no (unknown) (unknown) occurred due to the (unit s (unknown) date) inherent limitations of unknow n) voice recognition software. Please (unknown) (no (unknown) (unknown) read the note carefully ( units (unknown) date) and recognize, using unknown) context, where these substitutions (unknown) (no (unknown) (unknown) software. 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 Result panel 3 (unknown) (no (unknown) (unknown) (no value) (units (unk nown) date) unknown) (unknown) (no (unknown) (unknown) (1) Essential (units ( unknown) date) hypertension: unknown) (unknown) (no (unknown) (unknown) 10/30/19 [History (units (unknown) date) Confirmed 09/03/22] unknown) (unknown) (no (unknown) (unknown) 09/03/22 (units (unkno wn) date) unknown) (unknown) (no (unknown) (unknown) 15:35 (units (unkno wn) date) unknown) (unknown) (no (unknown) (unknown) [id number] (units (unkno wn) date) unknown) (unknown) (no (unknown) (unknown) 82 year old male presents (units (unknown) date) to clinic for medicare unknown ) wellness exam. 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O. unknown) (unknown) (no (unknown) (unknown) BP 140/80 (units (unkn own) date) unknown) (unknown) (no (unknown) (unknown) BRBPR (bright red blood ( units (unknown) date) per rectum) unknown) (unknown) (no (unknown) (unknown) Benign prostatic (units (unknown) date) hyperplasia unknown) (unknown) (no (unknown) (unknown) Blood Pressure Location Lt (units (unknown) date) brachial unknown) (unknown) (no (unknown) (unknown) Brother Lung (un its (unknown) date) cancer unknown) (unknown) (no (unknown) (unknown) Carpal tunnel syndrome (u nits (unknown) date) unknown) (unknown) (no (unknown) (unknown) Chickenpox (units (unk nown) date) unknown) (unknown) (no (unknown) (unknown) : 1940 (units (unknown) date) Acct:[id number] unknown) (unknown) (no (unknown) (unknown) Depression (units (unk nown) date) unknown) (unknown) (no (unknown) (unknown) Dept at . (u nits (unknown) date) unknown) (unknown) (no (unknown) (unknown) Diverticular disease (uni ts (unknown) date) unknown) (unknown) (no (unknown) (unknown) Diverticulosis of colon ( units (unknown) date) unknown) (unknown) (no (unknown) (unknown) Documented By: Salma Gage (units (unknown) date) 09/03/22 1136 unknown) (unknown) (no (unknown) (unknown) Draft (units (unkno wn) date) unknown) (unknown) (no (unknown) (unknown) Family History (Reviewed (units (unknown) date) 05/26/21 @ 16:59 by Jefe lerma) MD Rohan) (unknown) (no (unknown) (unknown) Family Practice Office (u nits (unknown) date) Visit unknown) (unknown) (no (unknown) (unknown) Father Cancer (u nits (unknown) date) unknown) (unknown) (no (unknown) (unknown) [facility] (units (unknown) date) unknown) (unknown) (no (unknown) (unknown) GERD (gastroesophageal (u nits (unknown) date) reflux disease) unknown) (unknown) (no (unknown) (unknown) H/O umbilical hernia (uni ts (unknown) date) repair () unknown) (unknown) (no (unknown) (unknown) Health Management reviewed (units (unknown) date) with patient: Yes unknown) (unknown) (no (unknown) (unknown) Health Management (units (unknown) date) unknown) (unknown) (no (unknown) (unknown) Hemorrhoids (units (un known) date) unknown) (unknown) (no (unknown) (unknown) History of (units (unk nown) date) esophagogastroduodenoscopy unk nown) (EGD) (06/03/12) (unknown) (no (unknown) (unknown) History of prostate biopsy (units (unknown) date) (-1992) unknown) (unknown) (no (unknown) (unknown) History of prostate biopsy (units (unknown) date) () unknown) (unknown) (no (unknown) (unknown) History of whiplash injury (units (unknown) date) unknown) (unknown) (no (unknown) (unknown) Hypertension (units (u nknown) date) unknown) (unknown) (no (unknown) (unknown) Impacted ear wax (units (unknown) date) unknown) (unknown) (no (unknown) (unknown) Intake Note: (units (u nknown) date) unknown) (unknown) (no (unknown) (unknown) Intake performed by: (aaron ts (unknown) date) Alva Aburto unknown) (unknown) (no (unknown) (unknown) Intake (units (unkno wn) date) unknown) (unknown) (no (unknown) (unknown) Intake- Clincial Staff (u nits (unknown) date) unknown) (unknown) (no (unknown) (unknown) Left hand dominant (units (unknown) date) unknown) (unknown) (no (unknown) (unknown) Loc: [facility] (units (unkno wn) date) unknown) (unknown) (no (unknown) (unknown) Lung cancer (units (un known) date) unknown) (unknown) (no (unknown) (unknown) Measles (units (unkno wn) date) unknown) (unknown) (no (unknown) (unknown) Medical History (Reviewed (units (unknown) date) 05/26/21 @ 16:59 by Jefe Madrigal MD) (unknown) (no (unknown) (unknown) Medications (units (un known) date) unknown) (unknown) (no (unknown) (unknown) Mother Cancer (u nits (unknown) date) unknown) (unknown) (no (unknown) (unknown) Mumps (units (unkno wn) date) unknown) (unknown) (no (unknown) (unknown) No Known Drug Allergies ( units (unknown) date) Allergy (Verified 09/03/22 reena lerma) 11:37) (unknown) (no (unknown) (unknown) Oxygen Delivery Method (u nits (unknown) date) room air unknown) (unknown) (no (unknown) (unknown) PFSH (units (unkno wn) date) unknown) (unknown) (no (unknown) (unknown) Patient: Hema Elliott ( units (unknown) date) MR#: [id number] unknown) (unknown) (no (unknown) (unknown) Plantar warts (units ( unknown) date) unknown) (unknown) (no (unknown) (unknown) Position Sitting (units (unknown) date) unknown) (unknown) (no (unknown) (unknown) Pulse 65 (units (unkno wn) date) unknown) (unknown) (no (unknown) (unknown) Pulse Oximetry (%) 97 (un its (unknown) date) unknown) (unknown) (no (unknown) (unknown) Pulse Source Monitor (uni ts (unknown) date) unknown) (unknown) (no (unknown) (unknown) Reason For Visit (units (unknown) date) unknown) (unknown) (no (unknown) (unknown) Rubella (units (unkno wn) date) unknown) (unknown) (no (unknown) (unknown) S/P TURP (status post (un its (unknown) date) transurethral resection of unk nown) prostate) () (unknown) (no (unknown) (unknown) Signed By: (units (unk nown) date) unknown) (unknown) (no (unknown) (unknown) Sister Age: 77 No problems (units (unknown) date) noted. unknown) (unknown) (no (unknown) (unknown) Smoker (units (unkno wn) date) unknown) (unknown) (no (unknown) (unknown) Smoking Status: Former (u nits (unknown) date) smoker unknown) (unknown) (no (unknown) (unknown) Social History (units (unknown) date) unknown) (unknown) (no (unknown) (unknown) Son Femur fracture (units (unknown) date) unknown) (unknown) (no (unknown) (unknown) Son No problems noted. (u nits (unknown) date) unknown) (unknown) (no (unknown) (unknown) Status post breast biopsy (units (unknown) date) (-1993) unknown) (unknown) (no (unknown) (unknown) Status post colonoscopy ( units (unknown) date) (11/2019) unknown) (unknown) (no (unknown) (unknown) Status post eye surgery ( units (unknown) date) (12/19/10) unknown) (unknown) (no (unknown) (unknown) Status: None (units (u nknown) date) unknown) (unknown) (no (unknown) (unknown) Surgical History (Reviewed (units (unknown) date) 05/26/21 @ 16:59 by Jefe lerma) MD Rohan) (unknown) (no (unknown) (unknown) Temp 97.9 F (units (un known) date) unknown) (unknown) (no (unknown) (unknown) Temp Source Temporal (uni ts (unknown) date) Artery Scan unknown) (unknown) (no (unknown) (unknown) Temporal arteritis (units (unknown) date) unknown) (unknown) (no (unknown) (unknown) This note may have been ( units (unknown) date) all or partially generated reena lerma) using voice recognition (unknown) (no (unknown) (unknown) Tobacco + Substance Use ( units (unknown) date) unknown) (unknown) (no (unknown) (unknown) Tobacco Status (units (unknown) date) unknown) (unknown) (no (unknown) (unknown) Tubular adenoma (-2011) ( units (unknown) date) unknown) (unknown) (no (unknown) (unknown) Urinary retention due to (units (unknown) date) benign prostatic unknown) hyperplasia (unknown) (no (unknown) (unknown) Visit Reasons: NTY (units (unknown) date) Medicare well visit * unknown) Chip* (unknown) (no (unknown) (unknown) Vitals (units (unkno wn) date) unknown) (unknown) (no (unknown) (unknown) Weight 149 lb (units ( unknown) date) unknown) (unknown) (no (unknown) (unknown) [Rx Confirmed 09/03/22] ( units (unknown) date) unknown) (unknown) (no (unknown) (unknown) alcohol intake: current ( units (unknown) date) unknown) (unknown) (no (unknown) (unknown) aspirin 81 mg (units ( unknown) date) tablet,delayed release unknown ) (Kim Low Dose Aspirin) 81 mg PO DAILY (unknown) (no (unknown) (unknown) have occurred. If there ( units (unknown) date) are any questions, please unkn own) contact the Medical Records (unknown) (no (unknown) (unknown) household members: spouse (units (unknown) date) unknown) (unknown) (no (unknown) (unknown) lisinopril 20 mg tablet ( units (unknown) date) See Rx Instructions .Route unk nown) .COMPLEX #180 tabs 06/26/22 (unknown) (no (unknown) (unknown) marital status: ( units (unknown) date) unknown) (unknown) (no (unknown) (unknown) may occur. Occasional (un its (unknown) date) wrong-word or 'sound-alike' un known) substitutions may have (unknown) (no (unknown) (unknown) multivitamin 1 tab PO (un its (unknown) date) DAILY 10/30/19 [History unknow n) Confirmed 09/03/22] (unknown) (no (unknown) (unknown) occupational status: (uni ts (unknown) date) previously employed unknown) (unknown) (no (unknown) (unknown) occurred due to the (unit s (unknown) date) inherent limitations of unknow n) voice recognition software. Please (unknown) (no (unknown) (unknown) read the note carefully ( units (unknown) date) and recognize, using unknown) context, where these substitutions (unknown) (no (unknown) (unknown) software. 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 Result panel 4 (unknown) (no date) (unknown) (unknown) > 60 ml/min (unkn own) (unknown) (no date) (unknown) (unknown) > 60 ml/min (unkn own) (unknown) (no date) (unknown) (unknown) 0.3 mg/dl (unkn own) (unknown) (no date) (unknown) (unknown) 0.74 mg/dl (unkn own) (unknown) (no date) (unknown) (unknown) 1.2 (units unknown) (unknown) (unknown) (no date) (unknown) (unknown) 102 mmol/l (unkn own) (unknown) (no date) (unknown) (unknown) 114 mg/dl (unkn own) (unknown) (no date) (unknown) (unknown) 114 mg/dl (unkn own) (unknown) (no date) (unknown) (unknown) 138 mmol/l (unkn own) (unknown) (no date) (unknown) (unknown) 150 mg/dl (unkn own) (unknown) (no date) (unknown) (unknown) 150 mg/dl (unkn own) (unknown) (no date) (unknown) (unknown) 18 iu/l (unkn own) (unknown) (no date) (unknown) (unknown) 23 mg/dl (unkn own) (unknown) (no date) (unknown) (unknown) 3.3 g/dl (unkn own) (unknown) (no date) (unknown) (unknown) 3.9 g/dl (unkn own) (unknown) (no date) (unknown) (unknown) 30 mmol/l (unkn own) (unknown) (no date) (unknown) (unknown) 31 iu/l (unkn own) (unknown) (no date) (unknown) (unknown) 31.1 (units unknown) (unknown) (unknown) (no date) (unknown) (unknown) 4.4 mmol/l (unkn own) (unknown) (no date) (unknown) (unknown) 40 mg/dl (unkn own) (unknown) (no date) (unknown) (unknown) 40 mg/dl (unkn own) (unknown) (no date) (unknown) (unknown) 7.2 g/dl (unkn own) (unknown) (no date) (unknown) (unknown) 74 u/l (unkn own) (unknown) (no date) (unknown) (unknown) 8.9 mg/dl (unkn own) (unknown) (no date) (unknown) (unknown) 87 mg/dl (unkn own) (unknown) (no date) (unknown) (unknown) 87 mg/dl (unkn own) (unknown) (no date) (unknown) (unknown) 88 mg/dl (unkn own) (unknown) (no date) (unknown) (unknown) 88 mg/dl (unkn own) Result panel 5 (unknown) (no date) (unknown) (unknown) 3.59 uiu/ml (unkn own) Result panel 6 (unknown) (no (unknown) (unknown) (no value) (units (unk nown) date) unknown) (unknown) (no (unknown) (unknown) (1) Essential (units ( unknown) date) hypertension: unknown) (unknown) (no (unknown) (unknown) (2) PE (physical exam), ( units (unknown) date) annual: unknown) (unknown) (no (unknown) (unknown) -discussed dietary + (uni ts (unknown) date) exercise goals unknown) (unknown) (no (unknown) (unknown) -discussed further (units (unknown) date) evaluation for some unknown) underlying memory issues. he declined. (unknown) (no (unknown) (unknown) -follow up annually for a (units (unknown) date) physical, as needed for any un known) concerns. (unknown) (no (unknown) (unknown) -labs pending, refilled ( units (unknown) date) appropriate medications. unkno wn) (unknown) (no (unknown) (unknown) -please see Orders for (u nits (unknown) date) additional issues addressed un known) (unknown) (no (unknown) (unknown) -reviewed and discussed ( units (unknown) date) Health Maintenance issues. unk nown) Pt declined issues not (unknown) (no (unknown) (unknown) -reviewed intake (units (unknown) date) questionnaire. Document unknow n) scanned into the EMR (unknown) (no (unknown) (unknown) 10/30/19 [History (units (unknown) date) Confirmed 09/03/22] unknown) (unknown) (no (unknown) (unknown) 09/03/22 1851 (units ( unknown) date) unknown) (unknown) (no (unknown) (unknown) 09/03/22 (units (unkno wn) date) unknown) (unknown) (no (unknown) (unknown) 15:35 (units (unkno wn) date) unknown) (unknown) (no (unknown) (unknown) [id number] (units (unkno wn) date) unknown) (unknown) (no (unknown) (unknown) 82 year old male presents (units (unknown) date) to clinic for medicare unknown ) wellness exam. 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 unknown ) (unknown) (no (unknown) (unknown) Age/Sex: 82 / M Date of ( units (unknown) date) Service: unknown) (unknown) (no (unknown) (unknown) Allergies (units (unkn own) date) unknown) (unknown) (no (unknown) (unknown) Allergies: Reviewed (unit s (unknown) date) unknown) (unknown) (no (unknown) (unknown) EL [place] [id number] (unit s (unknown) date) unknown) (unknown) (no (unknown) (unknown) Anesthesia (units (unk nown) date) unknown) (unknown) (no (unknown) (unknown) Arm fracture (units (u nknown) date) unknown) (unknown) (no (unknown) (unknown) Assessment + Plan (units (unknown) date) unknown) (unknown) (no (unknown) (unknown) Attending Dr: Salma Gage (units (unknown) date) D.O. unknown) (unknown) (no (unknown) (unknown) BP 140/80 (units (unkn own) date) unknown) (unknown) (no (unknown) (unknown) BRBPR (bright red blood ( units (unknown) date) per rectum) unknown) (unknown) (no (unknown) (unknown) Benign prostatic (units (unknown) date) hyperplasia unknown) (unknown) (no (unknown) (unknown) Blood Pressure Location Lt (units (unknown) date) brachial unknown) (unknown) (no (unknown) (unknown) Brother Lung (un its (unknown) date) cancer unknown) (unknown) (no (unknown) (unknown) CARDIAC: Regular rate and (units (unknown) date) rhythm. S1, S2 normal, no unkn own) murmur.? No edema. (unknown) (no (unknown) (unknown) CHEST: Normal respiratory (units (unknown) date) effort unknown) (unknown) (no (unknown) (unknown) Cardiovascular: Negative.? (units (unknown) date) unknown) (unknown) (no (unknown) (unknown) Carpal tunnel syndrome (u nits (unknown) date) unknown) (unknown) (no (unknown) (unknown) Chickenpox (units (unk nown) date) unknown) (unknown) (no (unknown) (unknown) Chief Complaint: AWV (uni ts (unknown) date) unknown) (unknown) (no (unknown) (unknown) Complete Blood Count AUTO (units (unknown) date) DIFF Today I10 - Essential unk nown) (primary) hypertension, (unknown) (no (unknown) (unknown) Comprehensive Metabolic ( units (unknown) date) Panel Today I10 - Essential un known) (primary) hypertension, (unknown) (no (unknown) (unknown) Constitutional: Negative.? (units (unknown) date) unknown) (unknown) (no (unknown) (unknown) : 1940 (units (unknown) date) Acct:[id number] unknown) (unknown) (no (unknown) (unknown) Depression (units (unk nown) date) unknown) (unknown) (no (unknown) (unknown) Dept at . (u nits (unknown) date) unknown) (unknown) (no (unknown) (unknown) Diverticular disease (uni ts (unknown) date) unknown) (unknown) (no (unknown) (unknown) Diverticulosis of colon ( units (unknown) date) unknown) (unknown) (no (unknown) (unknown) Documented By: Salma Gage (units (unknown) date) 09/03/22 1136 unknown) (unknown) (no (unknown) (unknown) EYES: PERRL, EOMI and (un its (unknown) date) nonicteric unknown) (unknown) (no (unknown) (unknown) Endocrine: Negative.? (un its (unknown) date) unknown) (unknown) (no (unknown) (unknown) Family History (Reviewed (units (unknown) date) 05/26/21 @ 16:59 by Jefe Madrigal MD) (unknown) (no (unknown) (unknown) Family Practice Office (u nits (unknown) date) Visit unknown) (unknown) (no (unknown) (unknown) Father Cancer (u nits (unknown) date) unknown) (unknown) (no (unknown) (unknown) [facility] (units (unknown) date) unknown) (unknown) (no (unknown) (unknown) GENERAL: Well developed, (units (unknown) date) well nourished.? unknown) Cooperative with exam.? Patient is in (unknown) (no (unknown) (unknown) GERD (gastroesophageal (u nits (unknown) date) reflux disease) unknown) (unknown) (no (unknown) (unknown) Gastrointestinal: (units (unknown) date) Negative.? unknown) (unknown) (no (unknown) (unknown) Genitourinary: Negative.? (units (unknown) date) unknown) (unknown) (no (unknown) (unknown) H/O umbilical hernia (uni ts (unknown) date) repair (-10/2019) unknown) (unknown) (no (unknown) (unknown) HEAD: Atraumatic, (units (unknown) date) Normocephalic unknown) (unknown) (no (unknown) (unknown) Health Management reviewed (units (unknown) date) with patient: Yes unknown) (unknown) (no (unknown) (unknown) Health Management (units (unknown) date) unknown) (unknown) (no (unknown) (unknown) Hemoglobin A1C% w Est Avg (units (unknown) date) Glu Today I10 - Essential unkn own) (primary) hypertension, (unknown) (no (unknown) (unknown) Hemorrhoids (units (un known) date) unknown) (unknown) (no (unknown) (unknown) History of (units (unk nown) date) esophagogastroduodenoscopy unk nown) (EGD) (06/03/12) (unknown) (no (unknown) (unknown) History of prostate biopsy (units (unknown) date) () unknown) (unknown) (no (unknown) (unknown) History of prostate biopsy (units (unknown) date) () unknown) (unknown) (no (unknown) (unknown) History of whiplash injury (units (unknown) date) unknown) (unknown) (no (unknown) (unknown) Hypertension (units (u nknown) date) unknown) (unknown) (no (unknown) (unknown) I reviewed the patient's (units (unknown) date) Past Medical History, unknown) Problem List, Medications and (unknown) (no (unknown) (unknown) Impacted ear wax (units (unknown) date) unknown) (unknown) (no (unknown) (unknown) Intake Note: (units (u nknown) date) unknown) (unknown) (no (unknown) (unknown) Intake performed by: (uni ts (unknown) date) Alva Aburto unknown) (unknown) (no (unknown) (unknown) Intake (units (unkno wn) date) unknown) (unknown) (no (unknown) (unknown) Intake- Clincial Staff (u nits (unknown) date) unknown) (unknown) (no (unknown) (unknown) LUNGS: Clear all lung (un its (unknown) date) medina, Bilaterally unknown) (unknown) (no (unknown) (unknown) Left hand dominant (units (unknown) date) unknown) (unknown) (no (unknown) (unknown) Lipid Panel Today I10 - (u nits (unknown) date) Essential (primary) unknown) hypertension, R41.3 - Other amnesia, (unknown) (no (unknown) (unknown) Loc: [facility] (units (unkno wn) date) unknown) (unknown) (no (unknown) (unknown) Lung cancer (units (un known) date) unknown) (unknown) (no (unknown) (unknown) MUSKULOSKELETAL: Normal ( units (unknown) date) gait. unknown) (unknown) (no (unknown) (unknown) Measles (units (unkno wn) date) unknown) (unknown) (no (unknown) (unknown) Medical History (Reviewed (units (unknown) date) 05/26/21 @ 16:59 by Jefe lerma) MD Rohan) (unknown) (no (unknown) (unknown) Medications (units (un known) date) unknown) (unknown) (no (unknown) (unknown) Medications: Reconciled ( units (unknown) date) unknown) (unknown) (no (unknown) (unknown) Mother Cancer (u nits (unknown) date) unknown) (unknown) (no (unknown) (unknown) Mumps (units (unkno wn) date) unknown) (unknown) (no (unknown) (unknown) NECK: Full range of (unit s (unknown) date) motion, lymphadenopathy unknow n) absent, supple (unknown) (no (unknown) (unknown) NEURO EXAM: Alert and (un its (unknown) date) oriented x 3.? unknown) (unknown) (no (unknown) (unknown) Neurological: Negative.? (units (unknown) date) unknown) (unknown) (no (unknown) (unknown) No Known Drug Allergies ( units (unknown) date) Allergy (Verified 09/03/22 reena lerma) 11:37) (unknown) (no (unknown) (unknown) Note (units (unkno wn) date) unknown) (unknown) (no (unknown) (unknown) Note: (units (unkno wn) date) unknown) (unknown) (no (unknown) (unknown) Notes (units (unkno wn) date) unknown) (unknown) (no (unknown) (unknown) Objective: (units (unk nown) date) unknown) (unknown) (no (unknown) (unknown) Orders (units (unkno wn) date) unknown) (unknown) (no (unknown) (unknown) Orders: (units (unkno wn) date) unknown) (unknown) (no (unknown) (unknown) Oxygen Delivery Method (u nits (unknown) date) room air unknown) (unknown) (no (unknown) (unknown) PFSH (units (unkno wn) date) unknown) (unknown) (no (unknown) (unknown) PSYCH: judgement normal, (units (unknown) date) orientation normal, unknown) affect/mood normal and memory (unknown) (no (unknown) (unknown) Patient: Hema Elliott ( units (unknown) date) MR#: [id number] unknown) (unknown) (no (unknown) (unknown) Plan (units (unkno wn) date) unknown) (unknown) (no (unknown) (unknown) Plantar warts (units ( unknown) date) unknown) (unknown) (no (unknown) (unknown) Position Sitting (units (unknown) date) unknown) (unknown) (no (unknown) (unknown) Pt is here for his AWV. he (units (unknown) date) is at his normal level of unkn own) health without complaints. (unknown) (no (unknown) (unknown) Pulse 65 (units (unkno wn) date) unknown) (unknown) (no (unknown) (unknown) Pulse Oximetry (%) 97 (un its (unknown) date) unknown) (unknown) (no (unknown) (unknown) Pulse Source Monitor (uni ts (unknown) date) unknown) (unknown) (no (unknown) (unknown) R41.3 - Other amnesia, (u nits (unknown) date) Z00.00 - Encounter for unknown ) general adult medical examination (unknown) (no (unknown) (unknown) Reason For Visit (units (unknown) date) unknown) (unknown) (no (unknown) (unknown) Respiratory: Negative.? ( units (unknown) date) unknown) (unknown) (no (unknown) (unknown) Review of Systems: (units (unknown) date) unknown) (unknown) (no (unknown) (unknown) Rubella (units (unkno wn) date) unknown) (unknown) (no (unknown) (unknown) S/P TURP (status post (un its (unknown) date) transurethral resection of unk nown) prostate) (-02/2020) (unknown) (no (unknown) (unknown) SKIN:? No rashes on face (units (unknown) date) or arms. unknown) (unknown) (no (unknown) (unknown) Signed By: <Electronically (units (unknown) date) signed by Salma Gage> unknown) (unknown) (no (unknown) (unknown) Signed (units (unkno wn) date) unknown) (unknown) (no (unknown) (unknown) Sister Age: 77 No problems (units (unknown) date) noted. unknown) (unknown) (no (unknown) (unknown) Smoker (units (unkno wn) date) unknown) (unknown) (no (unknown) (unknown) Smoking Status: Former (u nits (unknown) date) smoker unknown) (unknown) (no (unknown) (unknown) Social History (including (units (unknown) date) tobacco use status). unknown) (unknown) (no (unknown) (unknown) Social History (units (unknown) date) unknown) (unknown) (no (unknown) (unknown) Son Femur fracture (units (unknown) date) unknown) (unknown) (no (unknown) (unknown) Son No problems noted. (u nits (unknown) date) unknown) (unknown) (no (unknown) (unknown) Status post breast biopsy (units (unknown) date) () unknown) (unknown) (no (unknown) (unknown) Status post colonoscopy ( units (unknown) date) (11/2019) unknown) (unknown) (no (unknown) (unknown) Status post eye surgery ( units (unknown) date) (12/19/10) unknown) (unknown) (no (unknown) (unknown) Status: None (units (u nknown) date) unknown) (unknown) (no (unknown) (unknown) Subjective: (units (un known) date) unknown) (unknown) (no (unknown) (unknown) Surgical History (Reviewed (units (unknown) date) 05/26/21 @ 16:59 by Jefe Madrigal MD) (unknown) (no (unknown) (unknown) TSH w/ Reflex to FT4 Today (units (unknown) date) I10 - Essential (primary) unkn own) hypertension, R41.3 - Other (unknown) (no (unknown) (unknown) Temp 97.9 F (units (un known) date) unknown) (unknown) (no (unknown) (unknown) Temp Source Temporal (uni ts (unknown) date) Artery Scan unknown) (unknown) (no (unknown) (unknown) Temporal arteritis (units (unknown) date) unknown) (unknown) (no (unknown) (unknown) This note may have been ( units (unknown) date) all or partially generated reena lerma) using voice recognition (unknown) (no (unknown) (unknown) Tobacco + Substance Use ( units (unknown) date) unknown) (unknown) (no (unknown) (unknown) Tobacco Status (units (unknown) date) unknown) (unknown) (no (unknown) (unknown) Tubular adenoma (-2011) ( units (unknown) date) unknown) (unknown) (no (unknown) (unknown) Urinary retention due to (units (unknown) date) benign prostatic unknown) hyperplasia (unknown) (no (unknown) (unknown) Visit Reasons: NTY (units (unknown) date) Medicare well visit * unknown) Chip* (unknown) (no (unknown) (unknown) Vital Signs: Reviewed (un its (unknown) date) unknown) (unknown) (no (unknown) (unknown) Vitals (units (unkno wn) date) unknown) (unknown) (no (unknown) (unknown) Vitamin B12 Today I10 - (u nits (unknown) date) Essential (primary) unknown) hypertension, R41.3 - Other amnesia, (unknown) (no (unknown) (unknown) Voice recognition software (units (unknown) date) was used in the creation of un known) this note. There may be (unknown) (no (unknown) (unknown) Weight 149 lb (units ( unknown) date) unknown) (unknown) (no (unknown) (unknown) Z00.00 - Encounter for (u nits (unknown) date) general adult medical unknown) examination without abnormal (unknown) (no (unknown) (unknown) [Rx Confirmed 09/03/22] ( units (unknown) date) unknown) (unknown) (no (unknown) (unknown) abnormal findings (units (unknown) date) unknown) (unknown) (no (unknown) (unknown) addressed. (units (unk nown) date) unknown) (unknown) (no (unknown) (unknown) alcohol intake: current ( units (unknown) date) unknown) (unknown) (no (unknown) (unknown) amnesia, Z00.00 - (units (unknown) date) Encounter for general adult un known) medical examination without (unknown) (no (unknown) (unknown) aspirin 81 mg (units ( unknown) date) tablet,delayed release unknown ) (Kim Low Dose Aspirin) 81 mg PO DAILY (unknown) (no (unknown) (unknown) findings (units (unkno wn) date) unknown) (unknown) (no (unknown) (unknown) have occurred. If there ( units (unknown) date) are any questions, please unkn own) contact the Medical Records (unknown) (no (unknown) (unknown) he remains active, no (un its (unknown) date) decrease in exercise unknown) tolerance. (unknown) (no (unknown) (unknown) household members: spouse (units (unknown) date) unknown) (unknown) (no (unknown) (unknown) lisinopril 20 mg tablet ( units (unknown) date) See Rx Instructions .Route unk nown) .COMPLEX #180 tabs 06/26/22 (unknown) (no (unknown) (unknown) marital status: ( units (unknown) date) unknown) (unknown) (no (unknown) (unknown) may occur. Occasional (un its (unknown) date) wrong-word or 'sound-alike' un known) substitutions may have (unknown) (no (unknown) (unknown) multivitamin 1 tab PO (un its (unknown) date) DAILY 10/30/19 [History unknow n) Confirmed 09/03/22] (unknown) (no (unknown) (unknown) no apparent distress. (un its (unknown) date) unknown) (unknown) (no (unknown) (unknown) normal (units (unkno wn) date) unknown) (unknown) (no (unknown) (unknown) occupational status: (uni ts (unknown) date) previously employed unknown) (unknown) (no (unknown) (unknown) occurred due to the (unit s (unknown) date) inherent limitations of unknow n) voice recognition software. Please (unknown) (no (unknown) (unknown) read the note carefully ( units (unknown) date) and recognize, using unknown) context, where these substitutions (unknown) (no (unknown) (unknown) software. 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 (unknown) (no (unknown) (unknown) typographical errors as a (units (unknown) date) result. unknown) (unknown) (no (unknown) (unknown) without abnormal findings (units (unknown) date) unknown) Result panel 7 (unknown) (no date) (unknown) (unknown) > 60 ml/min (unkn own) (unknown) (no date) (unknown) (unknown) > 60 ml/min (unkn own) (unknown) (no date) (unknown) (unknown) 0.3 mg/dl (unkn own) (unknown) (no date) (unknown) (unknown) 0.74 mg/dl (unkn own) (unknown) (no date) (unknown) (unknown) 1.2 (units unknown) (unknown) (unknown) (no date) (unknown) (unknown) 102 mmol/l (unkn own) (unknown) (no date) (unknown) (unknown) 114 mg/dl (unkn own) (unknown) (no date) (unknown) (unknown) 114 mg/dl (unkn own) (unknown) (no date) (unknown) (unknown) 138 mmol/l (unkn own) (unknown) (no date) (unknown) (unknown) 150 mg/dl (unkn own) (unknown) (no date) (unknown) (unknown) 150 mg/dl (unkn own) (unknown) (no date) (unknown) (unknown) 18 iu/l (unkn own) (unknown) (no date) (unknown) (unknown) 23 mg/dl (unkn own) (unknown) (no date) (unknown) (unknown) 3.3 g/dl (unkn own) (unknown) (no date) (unknown) (unknown) 3.9 g/dl (unkn own) (unknown) (no date) (unknown) (unknown) 30 mmol/l (unkn own) (unknown) (no date) (unknown) (unknown) 31 iu/l (unkn own) (unknown) (no date) (unknown) (unknown) 31.1 (units unknown) (unknown) (unknown) (no date) (unknown) (unknown) 4.4 mmol/l (unkn own) (unknown) (no date) (unknown) (unknown) 40 mg/dl (unkn own) (unknown) (no date) (unknown) (unknown) 40 mg/dl (unkn own) (unknown) (no date) (unknown) (unknown) 440 pg/ml (unkn own) (unknown) (no date) (unknown) (unknown) 7.2 g/dl (unkn own) (unknown) (no date) (unknown) (unknown) 74 u/l (unkn own) (unknown) (no date) (unknown) (unknown) 8.9 mg/dl (unkn own) (unknown) (no date) (unknown) (unknown) 87 mg/dl (unkn own) (unknown) (no date) (unknown) (unknown) 87 mg/dl (unkn own) (unknown) (no date) (unknown) (unknown) 88 mg/dl (unkn own) (unknown) (no date) (unknown) (unknown) 88 mg/dl (unkn own) Result panel 8 (unknown) (no date) (unknown) (unknown) 5.3 % (unkn own) (unknown) (no date) (unknown) (unknown) 5.3 % (unkn own) Social History date description facility 2022-09-03 00:00 Ex-smoker (finding) [facility] Vital Signs date measurement value units 2022-09-03 00:00 BP_diastolic 80 mmHg 2022-09-03 00:00 BP_systolic 140 mmHg 2022-09-03 00:00 heart_rate 65 /min 2022-09-03 00:00 o2_saturation 97 % 2022-09-03 00:00 temperature_metric 36.61 C 2022-09-03 00:00 temperature_standard 97.9 F 2022-09-03 00:00 weight_metric 67.58 kg 2022-09-03 00:00 weight_standard 148.99 lb
[2022-11-18] MEDS ORDERED: iohexoL-300 100 ML VIAL IVP ONE (12:42)
[2022-11-18 12:56] LABS: B. PARAPERTUSSIS- RESP PCR PAN NOT DETECTED; B. PERTUSSIS- RESP PCR PANEL NOT DETECTED; C. PNEUMONIAE- RESP PCR PANEL NOT DETECTED; CORONAVIRUS 229E-RESP PCR NOT DETECTED; CORONAVIRUS HKU1-RESP PCR NOT DETECTED; CORONAVIRUS NL63-RESP PCR NOT DETECTED; CORONAVIRUS OC43-RESP PCR NOT DETECTED; HUMAN METAPNEUMOVIRUS NOT DETECTED; INFLUENZA A- RESP PCR PANEL NOT DETECTED; INFLUENZA B - RESP PCR PANEL NOT DETECTED; M. PNEUMONIAE- RESP PCR PANEL NOT DETECTED; PARAINFLUENZA VIRUS 1 NOT DETECTED; PARAINFLUENZA VIRUS 2 NOT DETECTED; PARAINFLUENZA VIRUS 3 NOT DETECTED; PARAINFLUENZA VIRUS 4 NOT DETECTED; RHINOVIRUS/ENTEROVIRUS NOT DETECTED; RSV- RESP PCR PANEL NOT DETECTED; SARS-CoV-2 -RESP PCR PANEL NOT DETECTED
--- NOTE | 2022-11-18 13:31 | CT Report ---
PROCEDURE: CT neck with contrast INDICATIONS: dysphagia CONTRAST: 100ml omni 300 TECHNIQUE: After the administration of intravenous contrast, 3.0 mm axial sections acquired from the sella to th e aortic arch. 3 mm thick coronal reformats were generated. For radiation dose reduction, the foll owing was used: automated exposure control, adjustment of mA and/or kV according to patient size. COMPARISON: None. FINDINGS: Image quality: Excellent. Lymph nodes: No enlarged lymph nodes seen throughout the neck. Vessels: Visualized vasculature appears patent. Neck spaces: The oropharynx, nasopharynx, and pharynx demonstrate no mucosal lesions. The vocal cor ds, false vocal cords, pyriform sinuses, epiglottis, vallecula, and tongue base all appear normal. E xtramucosal spaces appear unremarkable. Glands: The parotid and submandibular glands appear normal. The thyroid is normal in size and there are no incidental findings. Miscellaneous: Visualized brain and orbits appear normal. Lung apices appear clear. Superficial so ft tissues appear normal. Bones: No suspicious bony lesions. Visualized sinuses and mastoids appear unremarkable. Multiple d egenerative disc disease and arthropathy in the cervical spine results in moderate central stenosis C 3-4 C5-6. Incidental C2-3 block vertebrae noted involving nonsegmentation of the anterior and posteri or elements IMPRESSION: No evidence of pharyngitis or peritonsillar abscess. 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
[2022-11-18 14:05] VITALS: BP 168/100
== END 2022-11-18 13:50 | disposition home or self-care (01) ==
LOC: ED 11:23
DX: R13.13 Dysphagia, pharyngeal phase (principal); Z20.822 Contact with and (suspected) exposure to COVID-19; J02.9 Acute pharyngitis, unspecified; I10 Essential (primary) hypertension
CPT/HCPCS: 36415; 70491; 80048; 85025; 87070; 87430; 87633; 99284; Q9967

== ENCOUNTER 2023-03-11 01:47 | Emergency (ER) | payer MEDICARE, OTHER ==
--- NOTE | 2023-03-11 05:16 | ED Physician Documentation ---
PD HPI HEAD INJURY - Stated complaint Stated Complaint: GLF - Chief complaint Chief Complaint: Trauma Hd/Nk - History obtained from History obtained from: Patient, Family - Additional information Additional information: The patient comes to the emergency department with chief complaint of ground- level fall with head injury and neck pain. The patient states that he had gotten up to go the bathroom and was trying to go back to his room and accidentally went down the stairwell instead of through the doorway in the dark. He fell down a total of 14 stairs and states he really was not hurt except for bumping his head a few times. He points to the sides of his neck and states that his neck is sore. Patient denies any extremity pain. No hip, back, abdominal, rib, or shoulder pain. He did not lose consciousness. He is not on anticoagulation. He has noticed a couple of swollen areas on his scalp. PD PAST MEDICAL HISTORY - Past Medical History Cardiovascular: Hypertension Respiratory: None Neuro: Headaches Endocrine/Autoimmune: None GI: None : Benign prostate hypertrophy HEENT: None Psych: None Musculoskeletal: None Derm: None - Past Surgical History Past Surgical History: No General: Colonoscopy, Other - Present Medications Home Medications: Ambulatory Orders Medication Instructions Recorded Confirmed lisinopriL [Lisinopril] 40 mg PO DAILY 11/30/19 11/18/22 - Allergies Allergies/Adverse Reactions: Allergies Allergy/AdvReac Type Severity Reaction Status Date / Time No Known Drug Allergies Allergy Verified 03/11/23 02:05 - Social History Does the pt smoke?: No Smoking Status: Never smoker Does the pt drink ETOH?: No Does the pt have substance abuse?: No - Immunizations Immunizations are current?: Yes - POLST Patient has POLST: No POLST Status: Full Code PD ED PE NORMAL - Vitals Vital signs reviewed: Yes - General General: Alert and oriented X 3, No acute distress, Well developed/nourished - HEENT HEENT: PERRL, EOMI, Moist mucous membranes, Other (2 contusions with edema and mild elevation noted over gout. No laceration.) - Neck Neck: Supple, no meningeal sign, No bony TTP - Cardiac Cardiac: RRR, No murmur - Respiratory Respiratory: No respiratory distress, Clear bilaterally - Abdomen Abdomen: Soft, Non tender, Non distended - Back Back: No spinal TTP - Derm Derm: Normal color, Warm and dry, Other (Superficial abrasion posterior right shoulder) - Extremities Extremities: No deformity, No tenderness to palpate, Normal ROM s pain, Other (No tenderness or instability of the pelvis) - Neuro Neuro: Other (Moving all 4 extremities, ambulatory without difficulty, grossly intact.) - Psych Psych: Normal mood, Normal affect Results - Vitals Vitals: Vital Signs - 24 hr 03/11/23 03/11/23 02:00 05:13 Heart Rate 67 64 Respiratory 20 Rate Blood Pressure 162/85 H 152/85 H O2 Saturation 97 96 Oxygen O2 Source Room air - Rads (name of study) CT head Relevant Findings:: Final report received, See rad report (No acute findings) CT C-spine Relevant Findings:: Final report received, See rad report (Degenerative changes, no acute findings.) PD Medical Decision Making - ED course Complexity details: reviewed results, re-evaluated patient, considered differential, d/w patient, d/w family ED course: The patient was worked up with CT scans of the head and neck, which showed no acute or traumatic findings. Patient was stable for discharge home. He was advised regarding return precautions and symptomatic management at home. Departure - Departure Disposition: 01 Home, Self Care Clinical Impression: Closed head injury Qualifiers: Encounter type: initial encounter Qualified Code(s): S09.90XA - Unspecified injury of head, initial encounter Cervical strain Qualifiers: Encounter type: initial encounter Qualified Code(s): S16.1XXA - Strain of muscle, fascia and tendon at neck level, initial encounter Condition: Stable Instructions: ED Head Injury Closed, ED Sprain Strain Neck Comments: Your CT scans of the head and neck have been read as negative for bleeding in the brain or broken bones. You have some generalized arthritis in your neck but no traumatic findings. At this point in time, you may use ice packs and take ibuprofen and Tylenol as needed for discomforts. You will probably be sore for the next several days but this will start to gradually improve. Please follow- up with your primary doctor as needed. Discharge Date/Time: 03/11/23 05:22
[2023-03-11 05:21] VITALS: BP 152/85
--- NOTE | 2023-03-11 09:46 | CT Report ---
PROCEDURE: HEAD WO INDICATIONS: fall/head injury TECHNIQUE: Noncontrast 4.5 mm thick angled axial sections acquired from the foramen magnum to the vertex. For r adiation dose reduction, the following was used: automated exposure control, adjustment of mA and/or kV according to patient size. COMPARISON: None. FINDINGS: Image quality: Excellent. CSF spaces: Basal cisterns are patent. No extra-axial fluid collections. Ventricles are normal in size and shape. Brain: No midline shift. No intracranial masses or hemorrhage. Jackman-white matter interface is norm al. Age-appropriate cervical cortical volume loss. Mild periventricular hypodensity in the white mat ter tracts. Intracranial arterial atherosclerotic calcification. Skull and face: Right parietal subcutaneous soft tissue hematoma. No underlying fracture. Sinuses: Frontal sinuses are hypoplastic. Other paranasal sinuses and mastoid air cells are normally aerated. IMPRESSION: 1. No CT evidence of acute intracranial process. 2. Age-appropriate exam with involutional changes and mild white matter hypodensity. 3. Small right parietal subcutaneous soft tissue injury without underlying fracture. 4. Final interpretation concordant with preliminary report. Reviewed by: Mariya Cook MD on 03/11/2023 8:44 AM EN Approved by: Mariya Cook MD on 03/11/2023 8:44 AM EN Station ID: [id number]
--- NOTE | 2023-03-11 09:54 | CT Report ---
PROCEDURE: CERVICAL SPINE WO INDICATIONS: fall/head injury/neck pain TECHNIQUE: Noncontrast 3 mm thick sections acquired from the skull base to the T4 level. Sagittal and coronal r eformats were then constructed. For radiation dose reduction, the following was used: automated exp osure control, adjustment of mA and/or kV according to patient size. COMPARISON: None. FINDINGS: Image quality: Excellent. Bones: No acute fractures. Craniocervical junction is intact. There is pannus formation at the atlant odental interval with slight widening of the C1 to space anteriorly. Lateral masses of C1 remain norm ally aligned on C2. Incomplete segmentation at C2-3. Grade 1 anterolisthesis C7 on T1 and trace amount at T1-2. 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 Visualized superior ribs are intact. Soft tissues: Prevertebral soft tissues are normal in thickness. No paravertebral hematomas. No ap ical pneumothoraces. IMPRESSION: 1. No CT evidence of acute cervical spine injury. 2. Prominent calcified and noncalcified soft tissue pannus surrounding the odontoid process. No signi ficant central canal stenosis/cord compression. This can be seen in rheumatoid or inflammatory arthri tis. 3. 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 4. Final interpretation concordant with preliminary report. Reviewed by: Mariya Cook MD on 03/11/2023 8:53 AM EN Approved by: Mariya Cook MD on 03/11/2023 8:53 AM EN Station ID: [id number]
== END 2023-03-11 05:22 | disposition home or self-care (01) ==
LOC: ED 01:47
DX: S09.90XA Unspecified injury of head, initial encounter (principal); S16.1XXA Strain of muscle, fascia and tendon at neck level, initial encounter; W10.9XXA Fall (on) (from) unspecified stairs and steps, initial encounter; I10 Essential (primary) hypertension; Z79.899 Other long term (current) drug therapy
CPT/HCPCS: 99283; 99284

== ENCOUNTER 2024-01-07 10:16 | Outpatient (CLI) | payer MEDICARE, OTHER | END 2024-01-07 23:59 | disposition EMS.NT | LOC: EMS 10:16 | DX: R53.1 Weakness (principal) ==